=== PATIENT | male | born 1955 | race African-American/Black ===

== ENCOUNTER 2017-01-20 22:14 | Inpatient (IN) | payer OTHER ==
[2017-01-20] MEDS ORDERED: NALOXONE HCL 0.4 MG/ML VIAL IVPUSH ONE (23:34)
[2017-01-20] MEDS ORDERED: NALOXONE HCL 0.4 MG/ML VIAL ONE (23:49)
[2017-01-21] MEDS ORDERED: SODIUM CHLORIDE 1,000 ML IV STA ×3 (00:18→02:24)
[2017-01-21 00:44] LABS: URINE APPEARANCE CLOUDY; URINE BILIRUBIN NEGATIVE (NEGATIVE); URINE BLOOD NEGATIVE (NEGATIVE); URINE COLOR YELLOW; URINE GLUCOSE (UA) 3+ (NEGATIVE); URINE KETONE NEGATIVE (NEGATIVE); URINE LEUK ESTERASE NEGATIVE (NEGATIVE); URINE NITRITE NEGATIVE (NEGATIVE); URINE PROTEIN NEGATIVE (NEGATIVE); URINE UROBILINOGEN NEGATIVE mg/dL (0.2-1.0)
[2017-01-21 01:08] LABS: INR 0.98 (0.82-1.09); PROTHROMBIN TIME (PATIENT) 10.8 SEC (9.98-11.88)
[2017-01-21 01:20] LABS: ALBUMIN 4.3 g/dl (3.4-5.0); ANION GAP 15 (8-16); BILIRUBIN,TOTAL 1.1 mg/dL (0.2-1.0); CALCIUM 10.7 mg/dL (8.5-10.1); CO2 27 mmol/L (21-32); CREATININE 3.6 mg/dL (0.7-1.3); SGOT/AST 19 U/L (15-37); SGPT/ALT 35 U/L (12-78); TOT PROT 8.8 g/dl (6.4-8.2)
[2017-01-21 01:22] LABS: ALK PHOS 150 U/L (45-117); CPK 653 IU/L (39-308); TROPONIN I 0.02 ng/ml (0.00-0.05)
[2017-01-21 01:25] LABS: GLUCOSE,RANDOM 1056 mg/dL (74-106)
[2017-01-21 01:48] LABS: BASOPHIL 0.3 % (0-2.0); EOSINOPHIL 0.1 % (0-4.5); MCH 28.1 pg (25.7-33.7); MCHC 30.6 g/dl (32.0-35.9); MEAN CELL VOLUME 91.9 fl (80-96); NEUTROPHILS 81.4 % (42.8-82.8); RDW 15.6 % (11.9-15.9); WHITE BLOOD COUNT 13.1 K/mm3 (4.0-10.0)
[2017-01-21 01:52] LABS: MEAN PLT VOLUME 11.3 fl (7.5-11.1); PLATELET COMMENT2 NO CLUMPING NOTED; PLATELET COUNT 145 K/MM3 (134-434); PLATELET ESTIMATE ADEQUATE (NORMAL)
[2017-01-21] MEDS ORDERED: INSULIN REGULAR HUMAN 100 UNITS/ML *VIAL IVPUSH ONE (02:23)
[2017-01-21] MEDS ORDERED: DEXTROSE 50%-WATER - 25 GM/50 ML VIAL IVPUSH ONE (02:23)
--- NOTE | 2017-01-21 02:23 | PDOC ---
History of Present Illness - General Chief Complaint: Altered Mental Status Stated Complaint: ALT MENTAL STATUS Time Seen by Provider: 01/20/17 22:31 Past History - Past Medical History Allergies/Adverse Reactions: Allergies Allergy/AdvReac Type Severity Reaction Status Date / Time No Allergy Information Allergy Verified 01/20/17 22:30 Available Home Medications: Ambulatory Orders Blood Sugar Diagnostic [Test Strips] 1 each ACHS #100 strip 01/24/17 Insulin (Levemir) [Levemir Vial] 30 units SQ HS #10 ml 01/24/17 Insulin (Novolog) [Novolog -] 4 units SQ TIDAC #10 ml 01/24/17 Insulin Sliding Scale [Novolog Vial Sliding Scale -] 1 vial SQ ACHS #10 ml 01/24 Lancets 1 each QID #120 each 01/24/17 Miscellaneous Medical Supply [Glucometer Device] 1 each .ROUTE ASDIR #1 kit 02/01 [place], Safety [Needle] 1 each ASDIR #120 dis.needle 01/24/17 Nystatin Oral Suspension - [Nystatin Oral Susp 449366 Units/5 ML -] 500,000 units PO Q6HPO #100 ml 01/24/17 Syringe, Disposable, 1 ml [Carepoint Luer Slip Syringe] 1 each ASDIR #120 disp.syrin 01/24/17 - Psycho/Social/Smoking Cessation Hx Suicidal Ideation: No Smoking History: Unknown if ever smoked Have you smoked in the past 12 months: No Information on smoking cessation initiated: No Hx Alcohol Use: No Drug/Substance Use Hx: No Review of Systems - Review of Systems Able to Perform ROS?: No Is the patient limited Slovenian proficient: No *Physical Exam - Vital Signs Last Vital Signs Temp Pulse Resp BP Pulse Ox 97.8 F 93 H 20 134/94 91 L 01/20/17 22:30 01/21/17 01:35 01/21/17 01:35 01/21/17 01:35 01/21/17 01:35 - Physical Exam General Appearance: Yes: Disheveled HEENT: positive: Other (PINPOINT PUPILS) Neck: positive: Supple Respiratory/Chest: positive: Lungs Clear Cardiovascular: positive: Regular Rhythm, Regular Rate Gastrointestinal/Abdominal: positive: Soft Musculoskeletal: positive: Normal Inspection Extremity: positive: Normal Capillary Refill, Normal Inspection Integumentary: positive: Normal Color, Warm Neurologic: positive: Confused (MOVING ALL EXTREMITIES) ED Treatment Course - LABORATORY CBC & Chemistry Diagram: 01/23/17 07:35 01/24/17 09:35 - ADDITIONAL ORDERS Additional order review: Laboratory Results 01/21/17 01/21/17 01/21/17 00:27 00:19 00:19 INR Sodium 135 L Potassium 6.2 H* Chloride 93 L Carbon Dioxide 27 Anion Gap 15 BUN 71 H Creatinine 3.6 H Creat Clearance w eGFR 17.27 Random Glucose 1056 H* Calcium 10.7 H Total Bilirubin 1.1 H AST 19 ALT 35 Alkaline Phosphatase 150 H Creatine Kinase 653 H Creatine Kinase Index 0.2 CK-MB (CK-2) 1.313 Troponin I 0.02 Total Protein 8.8 H Albumin 4.3 Urine Color Yellow Urine Appearance Cloudy Urine pH 5.0 Urine Protein Negative Urine Glucose (UA) 3+ H Urine Ketones Negative Urine Blood Negative Urine Nitrite Negative Urine Bilirubin Negative Urine Urobilinogen Negative Ur Leukocyte Esterase Negative Blood Type B POSITIVE Antibody Screen Negative 01/21/17 00:19 INR 0.98 Sodium Potassium Chloride Carbon Dioxide Anion Gap BUN Creatinine Creat Clearance w eGFR Random Glucose Calcium Total Bilirubin AST ALT Alkaline Phosphatase Creatine Kinase Creatine Kinase Index CK-MB (CK-2) Troponin I Total Protein Albumin Urine Color Urine Appearance Urine pH Urine Protein Urine Glucose (UA) Urine Ketones Urine Blood Urine Nitrite Urine Bilirubin Urine Urobilinogen Ur Leukocyte Esterase Blood Type Antibody Screen 01/21/17 00:19 RBC 6.11 H MCV 91.9 MCHC 30.6 L RDW 15.6 MPV 11.3 H Neutrophils % 81.4 Lymphocytes % 9.7 Monocytes % 8.5 Eosinophils % 0.1 Basophils % 0.3 - RADIOLOGY Radiology Studies Ordered: Category Date Time Status HEAD CT WITHOUT CONTRAST [CT] Stat CT Scan 01/21/17 00:06 Ordered CHEST X-RAY PORTABLE* [RAD] Stat Radiology 01/20/17 22:58 Taken - Medications Given in the ED: ED Medications Discontinued Medications Generic Name Dose Route Start Last Admin Trade Name Freq PRN Reason Stop Dose Admin Sodium Chloride 1,000 mls @ 1,000 mls/hr 01/21/17 00:18 01/21/17 01:34 Normal Saline - IV 01/21/17 01:17 1,000 mls/hr ASDIR STA Administration Naloxone HCl 0.4 mg 01/20/17 23:34 01/21/17 00:42 Narcan - IVPUSH 01/20/17 23:35 0.4 mg ONCE ONE Administration Medical Decision Making - Medical Decision Making 01/21/17 02:27 61-year-old male brought in by ambulance from home for altered mental status. Report from the paramedics is that the family at home and reported that the patient was confused and had fallen yesterday. It does not appear to be any head trauma on the patient. I have no past medical history and with this patient's medical record number was not able to obtain more information. Pt found to be hyper 11 glycemic with a glucose of 1000, acute renal failure with a creatinine of more than 3 and BUN about 70, anion gap is 15, patient has no anemia. Vital signs upon arrival were stable. He is normotensive and had no fever I did not use Tylenol and -he did not react to Narcan and remained confused pending ct scan head,ABG,IV fluids. Ordered dextrose,insulin and kayexalate for k=6.2 spoke with Connie MCFARLANE but w/u is not finished -SIGNED OUT to Dr Aguirre 01/25/17 16:57 *DC/Admit/Observation/Transfer Diagnosis at time of Disposition: Hyperosmolar (nonketotic) coma - Discharge Dispostion Condition at time of disposition: Improved - Prescriptions
[2017-01-21] MEDS ORDERED: SODIUM POLYSTYRENE SULFONATE 15 GM/60 ML BOTTLE PO ONE (02:24)
[2017-01-21] MEDS ORDERED: SODIUM POLYSTYRENE SULFONATE 15 GM/60 ML BOTTLE ONE (02:57)
[2017-01-21] MEDS ORDERED: DEXTROSE 50%-WATER 50 ML DISP.SYRIN ONE ×2 (03:04→03:07)
--- NOTE | 2017-01-21 03:30 | PDOC ---
*Physical Exam - Vital Signs Last Vital Signs Temp Pulse Resp BP Pulse Ox 97.8 F 93 H 20 134/94 91 L 01/20/17 22:30 01/21/17 01:35 01/21/17 01:35 01/21/17 01:35 01/21/17 01:35 ED Treatment Course - LABORATORY CBC & Chemistry Diagram: 01/21/17 00:19 01/21/17 00:19 - ADDITIONAL ORDERS Additional order review: Laboratory Results 01/21/17 01/21/17 01/21/17 00:27 00:19 00:19 INR Sodium 135 L Potassium 6.2 H* Chloride 93 L Carbon Dioxide 27 Anion Gap 15 BUN 71 H Creatinine 3.6 H Creat Clearance w eGFR 17.27 Random Glucose 1056 H* Calcium 10.7 H Total Bilirubin 1.1 H AST 19 ALT 35 Alkaline Phosphatase 150 H Creatine Kinase 653 H Creatine Kinase Index 0.2 CK-MB (CK-2) 1.313 Troponin I 0.02 Total Protein 8.8 H Albumin 4.3 Urine Color Yellow Urine Appearance Cloudy Urine pH 5.0 Urine Protein Negative Urine Glucose (UA) 3+ H Urine Ketones Negative Urine Blood Negative Urine Nitrite Negative Urine Bilirubin Negative Urine Urobilinogen Negative Ur Leukocyte Esterase Negative Blood Type B POSITIVE Antibody Screen Negative 01/21/17 00:19 INR 0.98 Sodium Potassium Chloride Carbon Dioxide Anion Gap BUN Creatinine Creat Clearance w eGFR Random Glucose Calcium Total Bilirubin AST ALT Alkaline Phosphatase Creatine Kinase Creatine Kinase Index CK-MB (CK-2) Troponin I Total Protein Albumin Urine Color Urine Appearance Urine pH Urine Protein Urine Glucose (UA) Urine Ketones Urine Blood Urine Nitrite Urine Bilirubin Urine Urobilinogen Ur Leukocyte Esterase Blood Type Antibody Screen 01/21/17 00:19 RBC 6.11 H MCV 91.9 MCHC 30.6 L RDW 15.6 MPV 11.3 H Neutrophils % 81.4 Lymphocytes % 9.7 Monocytes % 8.5 Eosinophils % 0.1 Basophils % 0.3 - Medications Given in the ED: ED Medications Discontinued Medications Generic Name Dose Route Start Last Admin Trade Name Freq PRN Reason Stop Dose Admin Dextrose 50 gm 01/21/17 02:23 01/21/17 03:12 D50w (Vial) - IVPUSH 01/21/17 02:24 50 gm NOW ONE Administration Sodium Chloride 1,000 mls @ 1,000 mls/hr 01/21/17 00:18 01/21/17 01:34 Normal Saline - IV 01/21/17 01:17 1,000 mls/hr ASDIR STA Administration Sodium Chloride 1,000 mls @ 1,000 mls/hr 01/21/17 01:28 01/21/17 01:34 Normal Saline - IV 01/21/17 02:27 1,000 mls/hr ASDIR STA Administration Sodium Chloride 1,000 mls @ 1,000 mls/hr 01/21/17 02:24 01/21/17 03:12 Normal Saline - IV 01/21/17 03:23 1,000 mls/hr ASDIR STA Administration Insulin Human Regular 10 units 01/21/17 02:23 01/21/17 03:12 Novolin R Vial *For Ivpush Or Iv Drip Only* IVPUSH 01/21/17 02:24 10 units ONCE ONE Administration Naloxone HCl 0.4 mg 01/20/17 23:34 01/21/17 00:42 Narcan - IVPUSH 01/20/17 23:35 0.4 mg ONCE ONE Administration Sodium Polystyrene Sulfonate 30 gm 01/21/17 02:24 01/21/17 03:12 Kayexalate - PO 01/21/17 02:25 30 gm ONCE ONE Administration *DC/Admit/Observation/Transfer Diagnosis at time of Disposition: Diabetes mellitus with hyperosmolar coma - Discharge Dispostion Condition at time of disposition: Stable Admit: Yes
--- NOTE | 2017-01-21 03:38 | PN ---
Teaching Attending Note Name of Resident: Jared Robles ATTENDING PHYSICIAN STATEMENT I saw and evaluated the patient. I reviewed the resident's note and discussed the case with the resident. I agree with the resident's findings and plan as documented. SUBJECTIVE: 61 M with hx of HTN was BIBA for AMS. Pt. States he started to breath "funny," today, but offered no other history. OBJECTIVE: Physical: VS: Vital Signs Period Temp Pulse Resp BP Sys/[place] Pulse Ox Last 24 Hr 97.8 F 91-93 14-20 129-134/86-94 91-95 GEN: NAD, Resting in bed, AA0 X2 (time, unaware) HEENT: NCAT, PERRL, mouth with poor dentition CARD: RRR S1, S2 RESP: CTAB ABD: Obese, Soft, BSx4 EXT: - C/C/E CBCD WBC 13.1 K/mm3 (4.0-10.0) H 01/21/17 00:19 RBC 6.11 M/mm3 (4.00-5.60) H 01/21/17 00:19 Hgb 17.2 GM/dL (11.7-16.9) H 01/21/17 00:19 Hct 56.1 % (35.4-49) H 01/21/17 00:19 MCV 91.9 fl (80-96) 01/21/17 00:19 MCHC 30.6 g/dl (32.0-35.9) L 01/21/17 00:19 RDW 15.6 % (11.9-15.9) 01/21/17 00:19 Plt Count 145 K/MM3 (134-434) 01/21/17 00:19 MPV 11.3 fl (7.5-11.1) H 01/21/17 00:19 CMP Sodium 135 mmol/L (136-145) L 01/21/17 00:19 Potassium 6.2 mmol/L (3.5-5.1) H* 01/21/17 00:19 Chloride 93 mmol/L (98-107) L 01/21/17 00:19 Carbon Dioxide 27 mmol/L (21-32) 01/21/17 00:19 Anion Gap 15 (8-16) 01/21/17 00:19 BUN 71 mg/dL (7-18) H 01/21/17 00:19 Creatinine 3.6 mg/dL (0.7-1.3) H 01/21/17 00:19 Creat Clearance w eGFR 17.27 (>60) 01/21/17 00:19 Random Glucose 1056 mg/dL (74-106) H* 01/21/17 00:19 Calcium 10.7 mg/dL (8.5-10.1) H 01/21/17 00:19 Total Bilirubin 1.1 mg/dL (0.2-1.0) H 01/21/17 00:19 AST 19 U/L (15-37) 01/21/17 00:19 ALT 35 U/L (12-78) 01/21/17 00:19 Alkaline Phosphatase 150 U/L (45-117) H 01/21/17 00:19 Total Protein 8.8 g/dl (6.4-8.2) H 01/21/17 00:19 Albumin 4.3 g/dl (3.4-5.0) 01/21/17 00:19 CARDIAC ENZYMES Creatine Kinase 653 IU/L (39-308) H 01/21/17 00:19 Troponin I 0.02 ng/ml (0.00-0.05) 01/21/17 00:19 CT HEAD-No acute process CXR- Pending EKG: NSR Qtc 486 ASSESSMENT AND PLAN: 61 yo M with Htn who pw AMS found to be in hyperosmolar hyperglycemic State 1.) Hyperosmolar hyperglycemic State - Insulin gtt - 1/2 NS @ 200/hr - When Serum glucose decreases to 300 changes to D5 1/2 NS - K 6.2 (recieved insulin regular/D50 in Ed?), repeat STAT CMP - If K<3.3 hold insulin - 3.3-5.3 give 20 MeQ with IVF - >5.3 do not give K - Chk. S Osm - Chk. HgBA1c 2.) HTN - Unknon meds - Controlled 3.) NETO - Most likely from dehydration - IVF - U. Lytes 4.) Acute Hypoxic Respiratory Failure - ABG - 02 2L NC 5.) Dvt PPX - Heparin [address] in ICU CC Time 38 minutes
[2017-01-21] MEDS ORDERED: INSULIN REGULAR 100 UNITS in SODIUM CHLORIDE 99 ML IVPB SCH (03:45)
[2017-01-21] MEDS ORDERED: SODIUM CHLORIDE 0.45% 1,000 ML IV SCH ×2 (03:45→03:47)
[2017-01-21 04:26] LABS: ALLENS TEST POSITIVE; ART PUNCT SITE RIGHT BRACHIAL; ARTERIAL BLD GAS O2 SATURATION 88.2 % (90-98.9); ARTERIAL BLOOD GAS BASE EXCESS -2.4 meq/l (-2-2); ARTERIAL BLOOD GAS HCO3 23.4 meq/L (22-26); ARTERIAL BLOOD GAS PO2 64.3 mmHg (80-100); PT. ON O2? NO; TYPE OF O2 ROOM AIR
[2017-01-21 04:27] LABS: ARTERIAL BLOOD GAS pH 7.33 (7.35-7.45)
--- NOTE | 2017-01-21 04:47 | HP ---
CHIEF COMPLAINT: S/p fall HISTORY OF PRESENT ILLNESS: Pt is a 61yo M with unknown PMHx who was brought by EMS after fall. Patient is a poor historian, is confused about his story. States that he felt SOB, subsequently fell, did not hit his head. He is unsure about the circumstances surrounding his fall, unsure about symptoms prior to fall. He states he is no longer SOB, no CP, no abd pain, no nausea, no vomiting, no headache. ER course was notable for: (1) IVNS Boluses x3 (2) Labs - Glucose 1,056 (3) Insulin + Dextrose (4) Kayexalate x1 (5) Narcan - pt's pupils were pinpoint, Narcan given without effect Recent Travel: Denies PAST MEDICAL HISTORY: Denies PAST SURGICAL HISTORY: Denies Social History: Pt states he lives at home with his sons Smoking: Current daily smoker Alcohol: Denies Drugs: Denies Family History: Noncontributory Allergies No Allergy Information Available Allergy (Verified 01/20/17 22:30) HOME MEDICATIONS: Home Medications Medication Instructions Recorded Unobtainable [Unobtainable] 01/20/17 REVIEW OF SYSTEMS CONSTITUTIONAL: Absent: fever, chills, diaphoresis, generalized weakness, malaise, loss of appetite, weight change HEENT: Absent: rhinorrhea, nasal congestion, throat pain, throat swelling, difficulty swallowing, mouth swelling, ear pain, eye pain, visual changes CARDIOVASCULAR: Absent: chest pain, syncope, palpitations, irregular heart rate, lightheadedness , peripheral edema RESPIRATORY: Absent: cough, shortness of breath, dyspnea with exertion, orthopnea, wheezing, stridor, hemoptysis GASTROINTESTINAL: Absent: abdominal pain, abdominal distension, nausea, vomiting, diarrhea, constipation, melena, hematochezia GENITOURINARY: Absent: dysuria, frequency, urgency, hesitancy, hematuria, flank pain, genital pain MUSCULOSKELETAL: Absent: myalgia, arthralgia, joint swelling, back pain, neck pain SKIN: Absent: rash, itching, pallor HEMATOLOGIC/IMMUNOLOGIC: Absent: easy bleeding, easy bruising, lymphadenopathy, frequent infections ENDOCRINE: Absent: unexplained weight gain, unexplained weight loss, heat intolerance, cold intolerance NEUROLOGIC: Absent: headache, focal weakness or paresthesias, dizziness, unsteady gait, seizure, mental status changes, bladder or bowel incontinence PSYCHIATRIC: Absent: anxiety, depression, suicidal or homicidal ideation, hallucinations. PHYSICAL EXAMINATION Vital Signs - 24 hr 01/21/17 04:11 Pulse Rate [ 98 H Apical] Respiratory 18 Rate Blood Pressure 141/100 [Left Arm] O2 Sat by Pulse 92 L Oximetry (%) GEN: Awake, alert, responsive but confused about story. Speaks in full sentences. Understands questions. Oriented to person, month, not to place - knows he is in hospital, thought he was in [facility]. Does not recall president's name HEENT: Pupils are pinpoint, reactive, EOMi, dry mucous membranes, poor dentition CV: S1, S2, RRR LUNG: Pt was not compliant with breaths, minimal air intake ABD: Soft, NT, ND, normoactive BS MSK: No edema, no erythema, 2+ pulses NEURO: Pt was not cooperative for most of neuro exam. Laboratory Last Values WBC 13.1 K/mm3 (4.0-10.0) H 01/21/17 00:19 RBC 6.11 M/mm3 (4.00-5.60) H 01/21/17 00:19 Hgb 17.2 GM/dL (11.7-16.9) H 01/21/17 00:19 Hct 56.1 % (35.4-49) H 01/21/17 00:19 MCV 91.9 fl (80-96) 01/21/17 00:19 MCH 28.1 pg (25.7-33.7) 01/21/17 00:19 MCHC 30.6 g/dl (32.0-35.9) L 01/21/17 00:19 RDW 15.6 % (11.9-15.9) 01/21/17 00:19 Plt Count 145 K/MM3 (134-434) 01/21/17 00:19 MPV 11.3 fl (7.5-11.1) H 01/21/17 00:19 Neutrophils % 81.4 % (42.8-82.8) 01/21/17 00:19 Lymphocytes % 9.7 % (8-40) 01/21/17 00:19 Monocytes % 8.5 % (3.8-10.2) 01/21/17 00:19 Eosinophils % 0.1 % (0-4.5) 01/21/17 00:19 Basophils % 0.3 % (0-2.0) 01/21/17 00:19 Platelet Estimate Adequate (NORMAL) 01/21/17 00:19 Platelet Comment Rare giant plts 01/21/17 00:19 Platelet Comment No clumping noted 01/21/17 00:19 INR 0.98 (0.82-1.09) 01/21/17 00:19 Anticoagulation Therapy Y 01/21/17 04:00 Puncture Site Right brachial 01/21/17 04:00 ABG pH 7.33 (7.35-7.45) L 01/21/17 04:00 ABG pCO2 at Pt Temp 46.0 mmHg (35-45) H 01/21/17 04:00 ABG pO2 at Pt Temp 64.3 mmHg (80-100) L 01/21/17 04:00 ABG HCO3 23.4 meq/L (22-26) 01/21/17 04:00 ABG O2 Sat (Measured) 88.2 % (90-98.9) L 01/21/17 04:00 ABG O2 Content 19.0 % vol (15-22) 01/21/17 04:00 ABG Base Excess -2.4 meq/l (-2-2) L 01/21/17 04:00 Livan Test Positive 01/21/17 04:00 O2 Delivery Device Room air 01/21/17 04:00 Oxygen Flow Rate Y 01/21/17 04:00 Vent Mode Y 01/21/17 04:00 Vent Rate Y 01/21/17 04:00 Mechanical Rate Y 01/21/17 04:00 PEEP 0.0 cmH2O 01/21/17 04:00 Pressure Support Vent Y 01/21/17 04:00 Sodium 135 mmol/L (136-145) L 01/21/17 00:19 Potassium 6.2 mmol/L (3.5-5.1) H* 01/21/17 00:19 Chloride 93 mmol/L (98-107) L 01/21/17 00:19 Carbon Dioxide 27 mmol/L (21-32) 01/21/17 00:19 Anion Gap 15 (8-16) 01/21/17 00:19 BUN 71 mg/dL (7-18) H 01/21/17 00:19 Creatinine 3.6 mg/dL (0.7-1.3) H 01/21/17 00:19 Creat Clearance w eGFR 17.27 (>60) 01/21/17 00:19 Random Glucose 1056 mg/dL (74-106) H* 01/21/17 00:19 Calcium 10.7 mg/dL (8.5-10.1) H 01/21/17 00:19 Total Bilirubin 1.1 mg/dL (0.2-1.0) H 01/21/17 00:19 AST 19 U/L (15-37) 01/21/17 00:19 ALT 35 U/L (12-78) 01/21/17 00:19 Alkaline Phosphatase 150 U/L (45-117) H 01/21/17 00:19 Creatine Kinase 653 IU/L (39-308) H 01/21/17 00:19 Creatine Kinase Index 0.2 % (0.0-5.0) 01/21/17 00:19 CK-MB (CK-2) 1.313 ng/mL (0.5-3.6) 01/21/17 00:19 Troponin I 0.02 ng/ml (0.00-0.05) 01/21/17 00:19 Total Protein 8.8 g/dl (6.4-8.2) H 01/21/17 00:19 Albumin 4.3 g/dl (3.4-5.0) 01/21/17 00:19 Urine Color Yellow 01/21/17 00:27 Urine Appearance Cloudy 01/21/17 00:27 Urine pH 5.0 (5.0-8.0) 01/21/17 00:27 Urine Protein Negative (NEGATIVE) 01/21/17 00:27 Urine Glucose (UA) 3+ (NEGATIVE) H 01/21/17 00:27 Urine Ketones Negative (NEGATIVE) 01/21/17 00: Urine Blood Negative (NEGATIVE) 01/21/17 00: Urine Nitrite Negative (NEGATIVE) 01/21/17 00:27 Urine Bilirubin Negative (NEGATIVE) 01/21/17 00: Urine Urobilinogen Negative mg/dL (0.2-1.0) 01/21/17 00: Ur Leukocyte Esterase Negative (NEGATIVE) 01/21/17 00:27 Blood Type B POSITIVE 01/21/17 00:19 Antibody Screen Negative 01/21/17 00:[address] - No acute pathology ([facility]) CXR - No acute pathology (read by MD) ASSESSMENT/PLAN: Pt is a 61yo M with unknown PMHx who was brought by EMS after fall. Found to be in hyperglycemic hyperosmolar state (glucose 1056) w/ A1C of 11.5. # Hyperglycemic Hyperosmolar State - pH >7.3, gluc >600, No urinary ketones - Started Insulin drip - BMP stat + Q4hrs - closely monitor K+ - FSG Q1hr - IV 1/2 NS @ 150cc/hr - added KCl 20meq - S/p kayexalate given in ED, closely monitor K+ - If K < 3.3 hold insulin - If K 3.3-5.3 add 20meq KCl to fluids - Add D5 when glucose is 250-300 # Acidosis - likely mixed, ABG shows mild resp acidosis, now w/ mild AG 17 - Utox pending - O2 as needed # Hyperkalemia - likely from low insulin state - Given kayexalate in ER - Will likely resolve w/ insulin - Monitor K+ with insulin drip # Hypernatremia - Corrected Na+ is 160 - Will place on 1/2 NS IVF - Continue to monitor corrected Na+ # NETO vs CKD - unknown hx - On fluids, monitor for improvement - Urine Lytes ordered # Leukocytosis - Likely reactive, less likely infectious - Pending CXR read - Pending Lactic Acid # Elevated CK - Likely from fall - Continue hydration # QTc Prolongation - 482ms - Avoid agents that prolong QTc - Continuous cardiac monitoring # FEN - Fluids: IV 1/2 NS 150cc/hr w/ KCl 20meq - Electrolytes: Monitor K+ - Nutrition: NPO for now # Prophylaxis - DVT: Heparin SQ TID - GI: Not indicated - Deconditioning: PT on hold while patient is in ICU, order when pt is on floors # Dispo - Admit to ICU Case discussed with Dr. Lopez and Dr. Ki Robles MD - PGY1 Internal Medicine Visit type - Emergency Visit Emergency Visit: Yes ED Registration Date: 01/21/17 Care time: The patient presented to the Emergency Department on the above date and was hospitalized for further evaluation of their emergent condition. - New Patient This patient is new to me today: Yes Date on this admission: 01/21/17 - Critical Care Critical Care patient: Yes Total Critical Care Time (in minutes): 45 Critical Care Statement: The care of this patient involved high complexity decision making to prevent further life threatening deterioration of the patient 's condition and/or to evaluate & treat vital organ system(s) failure or risk of failure.
[2017-01-21] MEDS ORDERED: INSULIN REGULAR HUMAN 100 UNITS/ML *VIAL ONE (04:48)
[2017-01-21 04:56] LABS: MCH 28.1 pg (25.7-33.7); MCHC 29.9 g/dl (32.0-35.9); MEAN CELL VOLUME 94.1 fl (80-96); MEAN PLT VOLUME 11.6 fl (7.5-11.1); PLATELET COUNT 187 K/MM3 (134-434); RDW 16.1 % (11.9-15.9); WHITE BLOOD COUNT 11.7 K/mm3 (4.0-10.0)
[2017-01-21 05:14] LABS: ANION GAP 17 (8-16); CALCIUM 9.7 mg/dL (8.5-10.1); CO2 25 mmol/L (21-32); CREATININE 3.7 mg/dL (0.7-1.3)
[2017-01-21 05:16] LABS: GLUCOSE,RANDOM 1147 mg/dL (74-106)
[2017-01-21] MEDS ORDERED: SODIUM CHLORIDE 0.45% 1,000 ML with POTASSIUM CHLORIDE 20 MEQ IVPB SCH (05:30)
[2017-01-21] MEDS ORDERED: SODIUM CHLORIDE 0.45%/POT 1,000 ML IV SCH ×2 (08:00→09:02)
[2017-01-21] MEDS: HEPARIN NA (PORCINE) 5,000 UNITS/ML 1ML VIAL SQ SCH ×3 (08:51→22:05)
[2017-01-21] MEDS ORDERED: BENZOIN/ALOE VERA/STORAX/TOLU 58 ML BOTTLE ONE (08:59)
[2017-01-21] MEDS ORDERED: SODIUM CHLORIDE 0.45% 500 ML IV SCH (09:00)
[2017-01-21] MEDS ORDERED: SODIUM CHLORIDE 0.45% 500 ML IV ONE (09:00)
[2017-01-21] MEDS ORDERED: SODIUM CHLORIDE 1,000 ML IV SCH (10:15)
[2017-01-21] MEDS: MUPIROCIN 2% TOPICAL OINTMENT FOR DECOLONIZATION NS SCH ×2 (10:27→22:06)
[2017-01-21 10:33] LABS: ANION GAP 12 (8-16); CALCIUM 9.8 mg/dL (8.5-10.1); CO2 27 mmol/L (21-32); CREATININE 2.8 mg/dL (0.7-1.3); MAGNESIUM 3.6 mg/dL (1.8-2.4)
[2017-01-21 10:41] LABS: GLUCOSE,RANDOM 707 mg/dL (74-106)
[2017-01-21 11:02] VITALS: BMI 29.4
[2017-01-21] MEDS ORDERED: SODIUM CHLORIDE 0.9% 1000 ML INFUS.BAG IV ONE (12:15)
[2017-01-21 12:52] LABS: SODIUM,RANDOM URINE 18 MMOL/L
[2017-01-21 12:53] LABS: URINE CREATININE 93.1 mg/dL (20-370)
--- NOTE | 2017-01-21 13:53 | PN ---
Teaching Attending Note Name of Resident: Sariah Garcia ATTENDING PHYSICIAN STATEMENT I saw and evaluated the patient. I reviewed the resident's note and discussed the case with the resident. I agree with the resident's findings and plan as documented. SUBJECTIVE: Pt seen and examined in the ICU. Briefly, 61yo male with h/o HTN who presented with altered mental status found to have a blood glucose of 1056, started on IVF and insulin gtt, transferred to ICU for further monitoring. Pt denies prior history of DM but does not see a MD regularly. OBJECTIVE: Last Vital Signs Temp Pulse Resp BP Pulse Ox 98.8 F 79 24 128/91 97 01/21/17 12:00 01/21/17 12:00 01/21/17 12:00 01/21/17 12:00 01/21/17 11:06 Intake & Output 01/18/17 01/19/17 01/20/17 01/21/17 23:59 23:59 23:59 23:59 Output Total 100 Balance -100 Weight 200 lb 223 lb Gen: somnolent but arousable HEENT: dry mucous membranes Heart: RRR Lung: decreased breath sounds at the bases Abd: soft, nontender Ext: no edema CBC, BMP 01/21/17 04:12 01/21/17 08:55 Active Medications Chlorhexidine Gluconate (Hibiclens For Decolonization -) 1 applic TP HS ALISON Heparin Sodium (Porcine) (Heparin -) 5,000 unit SQ TID ALISON Last Admin: 01/21/17 08:51 Dose: 5,000 unit Insulin Human Regular 100 (units/ Sodium Chloride) 100 mls @ 9.07 mls/hr IVPB TITR ALISON; 0.1 UNITS/KG/HR PRN Reason: Protocol Last Admin: 01/21/17 03:45 Dose: 9.07 mls/hr Sodium Chloride (Normal Saline -) 1,000 mls @ 125 mls/hr IV ASDIR ALISON Last Admin: 01/21/17 10:25 Dose: 125 mls/hr Mupirocin (Bactroban Ointment (For Decolonization) -) 1 applic NS BID ALISON Stop: 01/26/17 09:59 Last Admin: 01/21/17 10:27 Dose: 1 applic ASSESSMENT AND PLAN: Hyperglycemic Hyperosmolar Non Ketotic State Newly diagnosed DM Acute Kidney Injury Hypovolemia HTN - last BGM 268, will stop insulin gtt and start sliding scale coverage - change IVF to 1/2NS - start levemir 20 units qHS - monitor BGM - diabetic teaching, diet modifications - monitor urine output, creatinine - f/u urine lytes - aspiration precautions - DVT prophylaxis critical care time spent in reviewing chart, evaluating patient and formulating plan 35 min
[2017-01-21 14:34] LABS: ANION GAP 10 (8-16); CALCIUM 9.6 mg/dL (8.5-10.1); CO2 30 mmol/L (21-32); CREATININE 2.3 mg/dL (0.7-1.3); GLUCOSE,RANDOM 279 mg/dL (74-106)
--- NOTE | 2017-01-21 15:01 | EKG ---
Test Reason : Blood Pressure : / mmHG Vent. Rate : 097 BPM Atrial Rate : 097 BPM P-R Int : 136 ms QRS Dur : 090 ms QT Int : 380 ms P-R-T Axes : 079 -25 055 degrees QTc Int : 482 ms NORMAL SINUS RHYTHM PROLONGED QT ABNORMAL ECG NO PREVIOUS ECGS AVAILABLE Confirmed by JORGE VELASQUEZ MD ([id number]) on 01/21/2017 3:01:35 PM Referred By: Confirmed By:JORGE VELASQUEZ MD
[2017-01-21] MEDS: SODIUM CHLORIDE 0.45% 1,000 ML IV SCH (15:17)
[2017-01-21] MEDS ORDERED: INSULIN SLIDING SCALE (NOVOLOG) 1 VIAL SQ SCH (16:30)
--- NOTE | 2017-01-21 16:30 | PN ---
Teaching Attending Note Name of Resident: Mony Urena ATTENDING PHYSICIAN STATEMENT I saw and evaluated the patient. I reviewed the resident's note and discussed the case with the resident. I agree with the resident's findings and plan as documented. SUBJECTIVE: unable to take hx as confused OBJECTIVE: NAD, lethargic but arousable, does not know year, but knows location and age Dry MM, no facial droop, round equal pupils CV: RRR Lungs : CTAb ext : no edema Neuro ; not cooperative . moves all extremities , no facial droop . EOMI ASSESSMENT AND PLAN: 61 y/o man with unknown PMH who presented after a fall and with AMS and was found to have HHS 1- HHS: no evidence of ketones in urine. AG slightly elevated with mild acidosis which resolved. very dry on PE - last sugar in 200. now off insulin gtt . - cont 1/2 NS at 100 cc - Levemir HS - SSI - dietition education when mentation improves 2- AMS , due to metabolic encephalopathy in the setting of severe dehydration and HHS - cont IVF - expect mentation to improve with improvement in NA level 3- Sever dehydration : - cont IVF NS at 100 cc . - MOnitor Na q 6 hr - goal of decrease in NA is < 0.5 meq/dl/hr 4- NETO :likely due to dehydration . Improved with IVF - cont IVF 5- Leukocytosis , liekly reactive , no evidence of infection ICU level of care Critical Care Total Critical Care Time (in minutes): 45 Critical Care Statement: The care of this patient involved high complexity decision making to prevent further life threatening deterioration of the patient 's condition and/or to evaluate & treat vital organ system(s) failure or risk of failure.
[2017-01-21] MEDS ORDERED: INSULIN (NOVOLOG) ASPART 100 UNITS/ML 10ML VIAL ONE (17:15)
--- NOTE | 2017-01-21 17:30 | CONSULT ---
Consult Consult Specialty:: ICU/Pulm - History of Present Illness History of Present Illness: 61yo man with unknown PMH who was BIBEMS after a fall and AMS. In the ED, pt was found to be in hyperglycemic hyperosmolar non-ketotic state (initial BG 1056 ). He was started on insulin gtt, received 3L NS boluses, and transferred to the ICU. HPI is limited due to patient's AMS. He endorses increased thirst. Denies history of diabetes. He does not see a physician regularly. - History Source History Provided By: Patient, Medical Record Limitations to Obtaining History: Clinical Condition - Past Medical History Additional Medical History: patient AMS and new to [facility], unable to obtain PMH - Past Surgical History Additional Surgical History: unable to obtain - Alcohol/Substance Use Hx Alcohol Use: No - Smoking History Smoking history: Current every day smoker Have you smoked in the past 12 months: No Aproximately how many cigarettes per day: 20 - Social History Usual Living Arrangement: With Child Occupation: retired, hospital building maintanence work Home Medications - Allergies Allergies/Adverse Reactions: Allergies Allergy/AdvReac Type Severity Reaction Status Date / Time No Allergy Information Allergy Verified 01/20/17 22:30 Available - Home Medications Home Medications: Ambulatory Orders Unobtainable [Unobtainable] 01/20/17 Review of Systems Unable to obtain ROS, reason: AMS Physical Exam Vital Signs: Vital Signs Temperature 97.4 F L 01/21/17 16:00 Pulse Rate 79 01/21/17 12:00 Respiratory Rate 21 01/21/17 14:00 Blood Pressure 149/78 01/21/17 16:00 O2 Sat by Pulse Oximetry (%) 97 01/21/17 11:06 Intake & Output 01/18/17 01/19/17 01/20/17 01/21/17 23:59 23:59 23:59 23:59 Intake Total 2007 Output Total 500 Balance 1508 Weight 90.718 kg 101.151 kg Constitutional: Yes: Well Nourished Eyes: Yes: Conjunctiva Clear HENT: Yes: Atraumatic, Other (poor dentition, dry mucous membranes) Cardiovascular: Yes: Regular Rate and Rhythm, Other (normal S1, S2; no murmur, gallop or rub) Respiratory: Yes: CTA Bilaterally Gastrointestinal: Yes: Soft, Abdomen, Obese, Other (Non tenderness, non distended) Edema: No Peripheral Pulses WNL: Yes Neurological: Yes: Other (lethargic, but arousable, oriented to himself (knew name, birthday), place (knew was in hospital, but could not name), but not to time (thought was 2019).) Labs: CBC, BMP 01/21/17 04:12 01/21/17 13:45 Hepatic Panel Total Bilirubin 1.1 mg/dL (0.2-1.0) H 01/21/17 00:19 AST 19 U/L (15-37) 01/21/17 00:19 ALT 35 U/L (12-78) 01/21/17 00:19 Alkaline Phosphatase 150 U/L (45-117) H 01/21/17 00:19 Albumin 4.3 g/dl (3.4-5.0) 01/21/17 00:19 INR, PTT INR 0.98 (0.82-1.09) 01/21/17 00:19 Troponin, BNP 01/21/17 00:19 Troponin I 0.02 Urine Test Results Urine Color Yellow 01/21/17 00:27 Urine Appearance Cloudy 01/21/17 00:27 Urine pH 5.0 (5.0-8.0) 01/21/17 00:27 Ur Specific [place] 1.010 (1.005-1.025) 01/21/17 00:27 Urine Protein Negative (NEGATIVE) 01/21/17 00:27 Urine Glucose (UA) 3+ (NEGATIVE) H 01/21/17 00:27 Urine Ketones Negative (NEGATIVE) 01/21/17 00:27 Urine Blood Negative (NEGATIVE) 01/21/17 00:27 Urine Nitrite Negative (NEGATIVE) 01/21/17 00:27 Urine Bilirubin Negative (NEGATIVE) 01/21/17 00:27 Ur Leukocyte Esterase Negative (NEGATIVE) 01/21/17 00:27 ABG Results ABG pH 7.33 (7.35-7.45) L 01/21/17 04:00 ABG pCO2 at Pt Temp 46.0 mmHg (35-45) H 01/21/17 04:00 ABG pO2 at Pt Temp 64.3 mmHg (80-100) L 01/21/17 04:00 ABG HCO3 23.4 meq/L (22-26) 01/21/17 04:00 ABG O2 Sat (Measured) 88.2 % (90-98.9) L 01/21/17 04:00 ABG O2 Content 19.0 % vol (15-22) 01/21/17 04:00 ABG Base Excess -2.4 meq/l (-2-2) L 01/21/17 04:00 Lactic acid 3.4, 3.1 Urine toxicology negative Imaging - Results Chest X-ray: Image Reviewed (No pneumothorax, pleural effusion, of consolidations) Cat Scan: Image Reviewed ( CT brain C-. Comparison study, CT brain January 02, 2017. The head was tilted during the acquisition of images. Serial axial images of the brain were obtained from foramen magnum to the cranial vertex without intravenous contrast. The study was supplemented with computer- generated coronal and sagittal reconstruction images. No evidence of acute subarachnoid hemorrhage, acute intra-axial or extra-axial fluid collection consistent with subdural or epidural hematoma. No mass effect, midline shift, acute territorial ischemic changes, herniation or edema is present. Normal walker matter white matter differentiation. The CSF spaces unchanged from prior CT. Age-related involutional changes are noted. No evidence of tonsillar ectopia Examination of the bone windows show no fracture. The visualized paranasal sinuses and mastoid air cells are clear. CSF filled sella turcica. Impression. No evidence of acute intracranial hemorrhage , edema, midline shift, mass effect, acute ischemic changes, skull fracture. Reported By: Bradly Lund MD 01/21/17 0736) Assessment/Plan 61yo man with unknown PMH who presents in hyperglycemic hyperosmolar non- ketotic state. He received insulin gtt and IVF with hourly BGM to trend correction with a goal of no more than 0.5mEq/dl/hr. Insulin gtt was discontinued when FBG was 268. He was started on insulin sliding scale coverage and levemir 20U HS. Hemoglobin A1c was found to be 11.5%, confirming diagnosis of diabetes. #Endocrine -BGM ACHS -Insulin sliding scale -20U Levemir HS -Diabetic teaching #Renal -Monitor I&Os -Monitor BUN/Cr -f/u urine electrolytes #Neuro -qShift neuro checks -Fall precautions -Aspiration precautions #FEN: -1/2 NS 100cc/hr -BMP q6H -Diabetic diet #PPX -Heparin 5000U SQ TID -GI ppx not indicated d/w Dr. KEYON Garcia, PGY-1 Visit type - Emergency Visit Emergency Visit: No - New Patient This patient is new to me today: Yes Date on this admission: 01/21/17 - Critical Care Critical Care patient: Yes Total Critical Care Time (in minutes): 35 Critical Care Statement: The care of this patient involved high complexity decision making to prevent further life threatening deterioration of the patient 's condition and/or to evaluate & treat vital organ system(s) failure or risk of failure.
--- NOTE | 2017-01-21 17:41 | PN ---
Physical Exam: SUBJECTIVE: Patient seen and examined. Seen this am and he c/o about thirst. OBJECTIVE: Vital Signs Period Temp Pulse Resp BP Sys/[place] Pulse Ox Last 24 Hr 79 F-98.8 F 76-98 17-24 120-149/78-100 92-98 GENERAL: The patient is drowsy, drifting in between alertness. HEAD: Normal with no signs of trauma. EYES: sclera anicteric, conjunctiva clear, pupils react to light bilaterally. No ptosis. ENT: Dry mucous membranes. NECK: Trachea midline, full range of motion, supple. LUNGS: Breath sounds equal, clear to auscultation bilaterally, no wheezes, no crackles, no accessory muscle use. HEART: Regular rate and rhythm, S1, S2 without murmur, rub or gallop. ABDOMEN: Soft, nontender, nondistended, normoactive bowel sounds, no guarding, no rebound, no hepatosplenomegaly, no masses. EXTREMITIES: 2+ pulses, warm, well-perfused, no edema. NEUROLOGICAL: Oriented to person and place. Obeys commands, Muscle strength 4/5 , reflexes normal UL and LL. Gait not observed. Laboratory Results - last 24 hr 01/21/17 01/21/17 01/21/17 04:00 04:12 04:12 WBC 11.7 H RBC 5.70 H Hgb 16.0 Hct 53.7 H MCV 94.1 MCH 28.1 MCHC 29.9 L RDW 16.1 H Plt Count 187 D MPV 11.6 H Anticoagulation Therapy Y Puncture Site Right brachial ABG pH 7.33 L ABG pCO2 at Pt Temp 46.0 H ABG pO2 at Pt Temp 64.3 L ABG HCO3 23.4 ABG O2 Sat (Measured) 88.2 L ABG O2 Content 19.0 ABG Base Excess -2.4 L Livan Test Positive O2 Delivery Device Room air Oxygen Flow Rate Y Vent Mode Y Vent Rate Y Mechanical Rate Y PEEP 0.0 Pressure Support Vent Y Sodium 143 Potassium 4.4 D Chloride 101 Carbon Dioxide 25 Anion Gap 17 H BUN 75 H Creatinine 3.7 H POC Glucometer Random Glucose 1147 H* Hemoglobin A1c % Lactic Acid Calcium 9.7 Phosphorus Magnesium Ur Random Sodium Ur Random Potassium Ur Random Chloride Urine Creatinine 01/21/17 01/21/17 01/21/17 07:25 08:55 08:55 WBC RBC Hgb Hct MCV MCH MCHC RDW Plt Count MPV Anticoagulation Therapy Puncture Site ABG pH ABG pCO2 at Pt Temp ABG pO2 at Pt Temp ABG HCO3 ABG O2 Sat (Measured) ABG O2 Content ABG Base Excess Livan Test O2 Delivery Device Oxygen Flow Rate Vent Mode Vent Rate Mechanical Rate PEEP Pressure Support Vent Sodium Potassium Chloride Carbon Dioxide Anion Gap BUN Creatinine POC Glucometer Random Glucose 822 H* D Hemoglobin A1c % Cancelled Lactic Acid Calcium Phosphorus Magnesium Cancelled Ur Random Sodium Ur Random Potassium Ur Random Chloride Urine Creatinine 01/21/17 01/21/17 01/21/17 08:55 08:55 08:55 WBC RBC Hgb Hct MCV MCH MCHC RDW Plt Count MPV Anticoagulation Therapy Puncture Site ABG pH ABG pCO2 at Pt Temp ABG pO2 at Pt Temp ABG HCO3 ABG O2 Sat (Measured) ABG O2 Content ABG Base Excess Livan Test O2 Delivery Device Oxygen Flow Rate Vent Mode Vent Rate Mechanical Rate PEEP Pressure Support Vent Sodium 152 H Potassium 4.3 Chloride 113 H D Carbon Dioxide 27 Anion Gap 12 BUN 65 H Creatinine 2.8 H D POC Glucometer Random Glucose 707 H* Hemoglobin A1c % 11.5 H Lactic Acid 3.4 H* Calcium 9.8 Phosphorus 4.0 Magnesium 3.6 H Ur Random Sodium Ur Random Potassium Ur Random Chloride Urine Creatinine 01/21/17 01/21/17 01/21/17 11:20 12:24 13:39 WBC RBC Hgb Hct MCV MCH MCHC RDW Plt Count MPV Anticoagulation Therapy Puncture Site ABG pH ABG pCO2 at Pt Temp ABG pO2 at Pt Temp ABG HCO3 ABG O2 Sat (Measured) ABG O2 Content ABG Base Excess Livan Test O2 Delivery Device Oxygen Flow Rate Vent Mode Vent Rate Mechanical Rate PEEP Pressure Support Vent Sodium Potassium Chloride Carbon Dioxide Anion Gap BUN Creatinine POC Glucometer 356.76323 268.81398 Random Glucose Hemoglobin A1c % Lactic Acid Calcium Phosphorus Magnesium Ur Random Sodium 18 Ur Random Potassium 23.4 Ur Random Chloride < 10 Urine Creatinine 93.1 01/21/17 01/21/17 01/21/17 13:45 13:45 15:08 WBC RBC Hgb Hct MCV MCH MCHC RDW Plt Count MPV Anticoagulation Therapy Puncture Site ABG pH ABG pCO2 at Pt Temp ABG pO2 at Pt Temp ABG HCO3 ABG O2 Sat (Measured) ABG O2 Content ABG Base Excess Livan Test O2 Delivery Device Oxygen Flow Rate Vent Mode Vent Rate Mechanical Rate PEEP Pressure Support Vent Sodium 160 H Potassium 4.1 Chloride 120 H Carbon Dioxide 30 Anion Gap 10 BUN 63 H Creatinine 2.3 H POC Glucometer [phone] Random Glucose 279 H D Hemoglobin A1c % Lactic Acid 3.1 H* Calcium 9.6 Phosphorus Magnesium Ur Random Sodium Ur Random Potassium Ur Random Chloride Urine Creatinine Active Medications Generic Name Dose Route Start Last Admin Trade Name Jono PRN Reason Stop Dose Admin Chlorhexidine Gluconate 1 applic 01/21/17 22:00 Hibiclens For Decolonization - TP HS ALISON Heparin Sodium (Porcine) 5,000 unit 01/21/17 06:00 01/21/17 14:03 Heparin - SQ 5,000 unit TID ALISON Administration Sodium Chloride 1,000 mls @ 100 mls/hr 01/21/17 14:45 01/21/17 15:17 1/2 Normal Saline IV 100 mls/hr ASDIR ALISON Administration Insulin Aspart 1 vial 01/21/17 16:35 Novolog Vial Sliding Scale - SQ ACHS ALISON Protocol Insulin Detemir 20 units 01/21/17 22:00 Levemir Vial SQ HS ALISON Mupirocin 1 applic 01/21/17 10:00 01/21/17 10:27 Bactroban Ointment (For Decolonization) - NS 01/26/17 09:59 1 applic BID ALISON Administration ASSESSMENT/PLAN: A 61 year old male, with unknown medical history, presented with altered mental status, and admitted for [facility]. #Hyperglycemic Hyperosmolar Stat- -Spoke to mother no prior history of DM, HTN or previous falls or syncope -Presenting glucose- above 1000 -3+ glucose in UA -absent ketones in urine -Anion gap peaked at 17 started to trend down -IVF Nsaline was given at @100mls/hr till RPG less than 300 -Now on IVF 1/2 Nsaline@100/hr to correct Na at 160 -monitoring Na Q6H -Insulin drip stopped # Acidosis - - Mild acidosis- ph 7.33 - Utox pending # Hyperkalemia - likely from low insulin state - Given kayexalate in ER - Had KCl fluid - Now stable at 4.1 following hydration, insulin drip, repletion # Hypernatremia - Presenting corrected Na+ was 160, -trended down to 140s with 1/2NS -and returned to 160 following rehydration with 0.9% - Now on IVF 1/2 Nsaline@100/hr - Continue to monitor Na+ Q6H # NETO vs CKD - unknown hx- BUN trending down-from max 74 to 63, Cr trending down - On fluids, monitor for improvement - Urine Lytes - within normal limits- # Leukocytosis - Trending downwards - CXR - no acute pathology noted - Lactic Acid -trending down # Elevated CK - Likely from fall - Continue hydration # QTc Prolongation - 482ms - Avoid agents that prolong QTc - Continuous cardiac monitoring # FEN - Fluids: IV 1/2 NS 100cc/hr - Electrolytes: Monitor Na - Nutrition: NPO for now # Prophylaxis - DVT: Heparin SQ TID - GI: Not indicated - Deconditioning: PT on hold while patient is in ICU, order when pt is on floors Visit type - Emergency Visit Emergency Visit: Yes ED Registration Date: 01/21/17 Care time: The patient presented to the Emergency Department on the above date and was hospitalized for further evaluation of their emergent condition. - New Patient This patient is new to me today: Yes Date on this admission: 01/21/17 - Critical Care Critical Care patient: Yes Total Critical Care Time (in minutes): 45 Critical Care Statement: The care of this patient involved high complexity decision making to prevent further life threatening deterioration of the patient 's condition and/or to evaluate & treat vital organ system(s) failure or risk of failure. - Discharge Referral Referred to [facility] Med P.C.: No
[2017-01-21 21:31] LABS: URINE MARIJUANA THC NEGATIVE ng/ml (CUTOFF=50)
[2017-01-21] MEDS ORDERED: INSULIN DETEMIR 100 UNITS/ML MDV SQ SCH ×2 (22:00)
[2017-01-21] MEDS ORDERED: CHLORHEXIDINE GLUCONATE 4% CLEANSER FOR DECOLONIZATION TP SCH (22:00)
[2017-01-21] MEDS: INSULIN SLIDING SCALE (NOVOLOG) 1 VIAL SQ SCH (22:06)
[2017-01-22 06:06] LABS: BASOPHIL 0.8 % (0-2.0); EOSINOPHIL 4.2 % (0-4.5); MCH 28.5 pg (25.7-33.7); MEAN CELL VOLUME 89.1 fl (80-96); NEUTROPHILS 67.5 % (42.8-82.8); PLATELET COUNT 141 K/MM3 (134-434); RDW 14.7 % (11.9-15.9); WHITE BLOOD COUNT 12.1 K/mm3 (4.0-10.0)
[2017-01-22 06:31] LABS: ANION GAP 6 (8-16); CO2 32 mmol/L (21-32); GLUCOSE,RANDOM 271 mg/dL (74-106)
[2017-01-22 06:32] LABS: CREATININE 1.7 mg/dL (0.7-1.3)
[2017-01-22] MEDS: HEPARIN NA (PORCINE) 5,000 UNITS/ML 1ML VIAL SQ SCH ×3 (06:32→22:18)
[2017-01-22] MEDS: INSULIN SLIDING SCALE (NOVOLOG) 1 VIAL SQ SCH ×4 (06:32→22:17)
[2017-01-22] MEDS: SODIUM CHLORIDE 0.45% 1,000 ML IV SCH (08:00)
[2017-01-22] MEDS ORDERED: NICOTINE 7 MG/24 HOURS TOPICAL PATCH TD SCH (10:00)
[2017-01-22] MEDS: MUPIROCIN 2% TOPICAL OINTMENT FOR DECOLONIZATION NS SCH ×2 (10:58→22:05)
[2017-01-22] MEDS ORDERED: PNEUMOCOCCAL 23 VACCINE 0.5 ML VIAL IM ONE (11:00)
[2017-01-22] MEDS ORDERED: NYSTATIN 500,000 UNITS/5 ML SUSPENSION PO SCH (12:00)
[2017-01-22] MEDS ORDERED: PT OWN MED DRAWER 7, Y5N ONE (12:46)
[2017-01-22 12:52] LABS: ANION GAP 9 (8-16); CALCIUM 8.1 mg/dL (8.5-10.1); CO2 29 mmol/L (21-32); CREATININE 1.7 mg/dL (0.7-1.3)
[2017-01-22 12:57] LABS: GLUCOSE,RANDOM 425 mg/dL (74-106)
[2017-01-22] MEDS ORDERED: MAGNESIUM CITRATE 300 ML BOTTLE PO ONE (13:00)
[2017-01-22] MEDS ORDERED: SODIUM CHLORIDE 0.45% 1,000 ML IV SCH (14:38)
--- NOTE | 2017-01-22 14:46 | PN ---
Teaching Attending Note Name of Resident: Mony Urena ATTENDING PHYSICIAN STATEMENT I saw and evaluated the patient. I reviewed the resident's note and discussed the case with the resident. I agree with the resident's findings and plan as documented. SUBJECTIVE: No fever or chills , has no apin , no SOB OBJECTIVE: NAD,AAOx3 Dry MM, no facial droop, round equal pupils CV: RRR Lungs: CTAb ext : no edema ASSESSMENT AND PLAN: 61 y/o man with unknown PMH who presented after a fall and with AMS and was found to have HHS 1- HHS: sugar is elevated again , NL AG still A1c 11.4 - increase levemir to 25 HS - cont SSI - cont IVF 2- AMS , due to metabolic encephalopathy in the setting of severe dehydration and HHS - resolved 3- Dehydration : NA improved with 1/2 NS . repeat NA this am shows rapid correction in Na level. - decreased 1/2 NS to 75 cc/hr. if cont with rapid correction , can change to NS . repeat Na 6 pm - goal of decrease in NA is < 0.5 meq/dl/hr 4- NETO :likely due to dehydration . Improved with IVF - cont IVF as above 5- Leukocytosis , likely reactive , no evidence of infection tx to med surg
--- NOTE | 2017-01-22 15:19 | PN ---
Teaching Attending Note Name of Resident: Sariah Garcia ATTENDING PHYSICIAN STATEMENT I saw and evaluated the patient. I reviewed the resident's note and discussed the case with the resident. I agree with the resident's findings and plan as documented. SUBJECTIVE: Patient seen and examined in the ICU. Blood sugars are improving. Anion gap has normalized. Denies CP or SOB. OBJECTIVE: Gen: Awake and alert HEENT: dry mucous membranes Heart: RRR Lung: decreased breath sounds at the bases Abd: soft, nontender Ext: no edema Laboratory Results - last 24 hr 01/21/17 01/21/17 01/21/17 03:52 07:09 08:55 WBC RBC Hgb Hct MCV MCH MCHC RDW Plt Count MPV Neutrophils % Lymphocytes % Monocytes % Eosinophils % Basophils % Sodium Potassium Chloride Carbon Dioxide Anion Gap BUN Creatinine POC Glucometer > 400 Random Glucose Hemoglobin A1c % Cancelled Calcium Opiates Screen Negative Methadone Screen Negative Barbiturate Screen Negative Phencyclidine Screen Negative Ur Amphetamines Screen Negative MDMA (Ecstasy) Screen Negative Benzodiazepines Screen Negative Cocaine Screen Negative U Marijuana (THC) Screen Negative 01/21/17 01/21/17 01/21/17 09:33 10:26 11:30 WBC RBC Hgb Hct MCV MCH MCHC RDW Plt Count MPV Neutrophils % Lymphocytes % Monocytes % Eosinophils % Basophils % Sodium Potassium Chloride Carbon Dioxide Anion Gap BUN Creatinine POC Glucometer > 400 > 400 > 400 Random Glucose Hemoglobin A1c % Calcium Opiates Screen Methadone Screen Barbiturate Screen Phencyclidine Screen Ur Amphetamines Screen MDMA (Ecstasy) Screen Benzodiazepines Screen Cocaine Screen U Marijuana (THC) Screen 01/21/17 01/21/17 01/21/17 13:39 15:08 16:25 WBC RBC Hgb Hct MCV MCH MCHC RDW Plt Count MPV Neutrophils % Lymphocytes % Monocytes % Eosinophils % Basophils % Sodium Potassium Chloride Carbon Dioxide Anion Gap BUN Creatinine POC Glucometer 268.19653 301.17649 341.58108 Random Glucose Hemoglobin A1c % Calcium Opiates Screen Methadone Screen Barbiturate Screen Phencyclidine Screen Ur Amphetamines Screen MDMA (Ecstasy) Screen Benzodiazepines Screen Cocaine Screen U Marijuana (THC) Screen 01/21/17 01/21/17 01/22/17 21:45 21:50 05:00 WBC RBC Hgb Hct MCV MCH MCHC RDW Plt Count MPV Neutrophils % Lymphocytes % Monocytes % Eosinophils % Basophils % Sodium 152 H 154 H Potassium 4.7 Chloride 116 H Carbon Dioxide 32 Anion Gap 6 L BUN 43 H D Creatinine 1.7 H D POC Glucometer [phone] Random Glucose 271 H Hemoglobin A1c % Calcium 8.0 L Opiates Screen Methadone Screen Barbiturate Screen Phencyclidine Screen Ur Amphetamines Screen MDMA (Ecstasy) Screen Benzodiazepines Screen Cocaine Screen U Marijuana (THC) Screen 01/22/17 01/22/17 01/22/17 05:00 06:32 11:16 WBC 12.1 H RBC 4.89 Hgb 14.0 D Hct 43.6 D MCV 89.1 MCH 28.5 MCHC 32.0 RDW 14.7 Plt Count 141 D MPV 11.0 Neutrophils % 67.5 Lymphocytes % 20.3 D Monocytes % 7.2 Eosinophils % 4.2 D Basophils % 0.8 Sodium Potassium Chloride Carbon Dioxide Anion Gap BUN Creatinine POC Glucometer [phone] > 400 Random Glucose Hemoglobin A1c % Calcium Opiates Screen Methadone Screen Barbiturate Screen Phencyclidine Screen Ur Amphetamines Screen MDMA (Ecstasy) Screen Benzodiazepines Screen Cocaine Screen U Marijuana (THC) Screen 01/22/17 01/22/17 12:00 12:00 WBC RBC Hgb Hct MCV MCH MCHC RDW Plt Count MPV Neutrophils % Lymphocytes % Monocytes % Eosinophils % Basophils % Sodium 149 H Potassium 4.3 Chloride 111 H Carbon Dioxide 29 Anion Gap 9 BUN 42 H Creatinine 1.7 H POC Glucometer Random Glucose 425 H* D Cancelled Hemoglobin A1c % Calcium 8.1 L Opiates Screen Methadone Screen Barbiturate Screen Phencyclidine Screen Ur Amphetamines Screen MDMA (Ecstasy) Screen Benzodiazepines Screen Cocaine Screen U Marijuana (THC) Screen ASSESSMENT AND PLAN: Hyperglycemic Hyperosmolar [place] Newly diagnosed DM Acute Kidney Injury Hypovolemia HTN - Gylcemic control - IVF - Diabetic teaching, diet modifications - monitor urine output, creatinine - DVT prophylaxis Dr Mccarthy Critical care time spent in reviewing chart, evaluating patient and formulating plan 35 min
[2017-01-22] MEDS: NYSTATIN 500,000 UNITS/5 ML SUSPENSION PO SCH (17:54)
--- NOTE | 2017-01-22 18:07 | PN ---
Physical Exam: SUBJECTIVE: Patient seen and examined. Much improved this am. OBJECTIVE: Vital Signs Period Temp Pulse Resp BP Sys/Garland Pulse Ox Last 24 Hr 97.4 F-97.8 F 71-88 10-24 122-154/72-109 99 GENERAL: The patient is awake, alert, and fully oriented, in no acute distress. HEAD: Normal with no signs of trauma. EYES: PERRL, extraocular movements intact, sclera anicteric, conjunctiva clear. No ptosis. ENT: Oral candidiasis, moist mucous membranes. LUNGS: Breath sounds equal, clear to auscultation bilaterally, no wheezes, no crackles, no accessory muscle use. HEART: Regular rate and rhythm, S1, S2 without murmur, rub or gallop. ABDOMEN: Soft, nontender, nondistended, normoactive bowel sounds, no guarding, no rebound, no hepatosplenomegaly, no masses. EXTREMITIES: Warm, well-perfused, no edema, bilateral hardened and darkened nails. NEUROLOGICAL: Oriented X3. Power 5/5 globally, reflexes 2+. Normal speech, gait not observed. PSYCH: Normal mood, normal affect. Laboratory Results - last 24 hr 01/21/17 01/21/17 01/21/17 03:52 07:09 09:33 WBC RBC Hgb Hct MCV MCH MCHC RDW Plt Count MPV Neutrophils % Lymphocytes % Monocytes % Eosinophils % Basophils % Sodium Potassium Chloride Carbon Dioxide Anion Gap BUN Creatinine POC Glucometer > 400 > 400 Random Glucose Calcium Opiates Screen Negative Methadone Screen Negative Barbiturate Screen Negative Phencyclidine Screen Negative Ur Amphetamines Screen Negative MDMA (Ecstasy) Screen Negative Benzodiazepines Screen Negative Cocaine Screen Negative U Marijuana (THC) Screen Negative 01/21/17 01/21/17 01/21/17 10:26 11:30 16:25 WBC RBC Hgb Hct MCV MCH MCHC RDW Plt Count MPV Neutrophils % Lymphocytes % Monocytes % Eosinophils % Basophils % Sodium Potassium Chloride Carbon Dioxide Anion Gap BUN Creatinine POC Glucometer > 400 > [phone] Random Glucose Calcium Opiates Screen Methadone Screen Barbiturate Screen Phencyclidine Screen Ur Amphetamines Screen MDMA (Ecstasy) Screen Benzodiazepines Screen Cocaine Screen U Marijuana (THC) Screen 01/21/17 01/21/17 01/22/17 21:45 21:50 05:00 WBC RBC Hgb Hct MCV MCH MCHC RDW Plt Count MPV Neutrophils % Lymphocytes % Monocytes % Eosinophils % Basophils % Sodium 152 H 154 H Potassium 4.7 Chloride 116 H Carbon Dioxide 32 Anion Gap 6 L BUN 43 H D Creatinine 1.7 H D POC Glucometer [phone] Random Glucose 271 H Calcium 8.0 L Opiates Screen Methadone Screen Barbiturate Screen Phencyclidine Screen Ur Amphetamines Screen MDMA (Ecstasy) Screen Benzodiazepines Screen Cocaine Screen U Marijuana (THC) Screen 01/22/17 01/22/17 01/22/17 05:00 06:32 11:16 WBC 12.1 H RBC 4.89 Hgb 14.0 D Hct 43.6 D MCV 89.1 MCH 28.5 MCHC 32.0 RDW 14.7 Plt Count 141 D MPV 11.0 Neutrophils % 67.5 Lymphocytes % 20.3 D Monocytes % 7.2 Eosinophils % 4.2 D Basophils % 0.8 Sodium Potassium Chloride Carbon Dioxide Anion Gap BUN Creatinine POC Glucometer [phone] > 400 Random Glucose Calcium Opiates Screen Methadone Screen Barbiturate Screen Phencyclidine Screen Ur Amphetamines Screen MDMA (Ecstasy) Screen Benzodiazepines Screen Cocaine Screen U Marijuana (THC) Screen 01/22/17 01/22/17 01/22/17 12:00 12:00 16:15 WBC RBC Hgb Hct MCV MCH MCHC RDW Plt Count MPV Neutrophils % Lymphocytes % Monocytes % Eosinophils % Basophils % Sodium 149 H Potassium 4.3 Chloride 111 H Carbon Dioxide 29 Anion Gap 9 BUN 42 H Creatinine 1.7 H POC Glucometer [phone] Random Glucose 425 H* D Cancelled Calcium 8.1 L Opiates Screen Methadone Screen Barbiturate Screen Phencyclidine Screen Ur Amphetamines Screen MDMA (Ecstasy) Screen Benzodiazepines Screen Cocaine Screen U Marijuana (THC) Screen Active Medications Generic Name Dose Route Start Last Admin Trade Name Freq PRN Reason Stop Dose Admin Chlorhexidine Gluconate 1 applic 01/22/17 22:00 Hibiclens For Decolonization - TP HS ALISON Heparin Sodium (Porcine) 5,000 unit 01/22/17 22:00 Heparin - SQ TID ALISON Sodium Chloride 1,000 mls @ 75 mls/hr 01/22/17 14:38 01/22/17 14:40 1/2 Normal Saline IV 75 mls/hr ASDIR ALISON Administration Insulin Aspart 1 vial 01/22/17 22:00 Novolog Vial Sliding Scale - SQ ACHS [facility] Protocol Insulin Detemir 25 units 01/22/17 22:00 Levemir Vial SQ HS [facility] Mupirocin 1 applic 01/22/17 22:00 Bactroban Ointment (For Decolonization) - NS 01/26/17 09:59 BID [facility] Nicotine 7 mg 01/23/17 10:00 Nicoderm Patch - TD DAILY [facility] Nystatin 500,000 units 01/22/17 18:00 01/22/17 17:54 Nystatin Oral Suspension - PO 500,000 units Q6HPO [facility] Administration ASSESSMENT/PLAN: A 61 year old male, with unknown medical history, presented with altered mental status, and admitted for [facility]. #Hyperglycemic Hyperosmolar State- -resolving- RPG -271 this am -No longer in altered mental state -on 05/19 Nsaline- 100mls intially then reduced to 75mls - Basal insulin at 20meQ given yesterday -On ISS # Hypernatremia -Came in with high corrected Na levels - unsure of baseline Na levels -On 05/19 Nsaline initially at 100mls/hr -rapidly corrected from 154 to 149 between 5.00am and noon - /2 Normal saline was slowed to 75mls -Repeat Na at 6.00pm was 145, 1/2 Nsaline was stopped and pt was put on 75mls /N Saline -Re evauate Na at 1.00am- orders in #Oral candidiasis -Nystatin oral suspension 500,000u PO Q6H swish and swallow - Manage DM #T2DM -Newly diagnosed with UsK6V-33.1 -Negative urine proteins - Basal insulin at 20meQ given yesterday -On ISS- # Acidosis - -Resolving - trended from max of 17 to 9 - Utox negative -Ethylene glycol and methanol test pending # Hyperkalemia -Resolving - Max value at 6.2 on presentation, Last value 4.3 following fluids and insulin therapy # NETO vs CKD - Probably due to dehydration - unknown hx- BUN trending down-from max 74 to 47, - Cr trending down max 3.6, now 1.7 - On fluids, improving # Leukocytosis - Trending downwards - CXR - no acute pathology noted - Lactic Acid -trending down # Elevated CK - Likely from fall - Continue hydration # QTc Prolongation - 482ms - Avoid agents that prolong QTc - Continuous cardiac monitoring # FEN - Fluids: IV NS 75cc/hr - Electrolytes: Monitor Na - Nutrition: NPO for now # Prophylaxis - DVT: Heparin SQ TID - GI: Not indicated - Deconditioning: Pt is ambulating at will #Dispo: Transferred to Med-Surg Visit type - Emergency Visit Emergency Visit: Yes ED Registration Date: 01/21/17 Care time: The patient presented to the Emergency Department on the above date and was hospitalized for further evaluation of their emergent condition. - New Patient This patient is new to me today: No - Critical Care Critical Care patient: Yes Total Critical Care Time (in minutes): 45 Critical Care Statement: The care of this patient involved high complexity decision making to prevent further life threatening deterioration of the patient 's condition and/or to evaluate & treat vital organ system(s) failure or risk of failure. - Discharge Referral Referred to [facility] Med P.C.: No
--- NOTE | 2017-01-22 19:20 | PN ---
Physical Exam: 24H Events: blood no acute events SUBJECTIVE: Patient seen and examined in ICU. Feeling much better. No nausea, vomiting, chest pain, or SOB. Tolerating diet. OBJECTIVE: Vital Signs Period Temp Pulse Resp BP Sys/Garland Pulse Ox Last 24 Hr 97.4 F-97.8 F 71-88 10-24 122-154/61-109 96-99 Intake & Output 01/19/17 01/20/17 01/21/17 01/22/17 23:59 23:59 23:59 23:59 Intake Total 20070 Output Total 500 1050 Balance 1508 650 Weight 90.718 kg 101.151 kg 113.7 kg GENERAL: The patient is awake, alert, and fully oriented, nad EYES:sclera anicteric, conjunctiva clear ENT: poor dentition, moist mucous membranes LUNGS: CTAB HEART: rrr, normal S1/S2, no murmur, rub or gallop. ABDOMEN: Soft, ntnd EXTREMITIES: no edema Laboratory Last Values WBC 12.1 K/mm3 (4.0-10.0) H 01/22/17 05:00 RBC 4.89 M/mm3 (4.00-5.60) 01/22/17 05:00 Hgb 14.0 GM/dL (11.7-16.9) D 01/22/17 05:00 Hct 43.6 % (35.4-49) D 01/22/17 05:00 MCV 89.1 fl (80-96) 01/22/17 05:00 MCH 28.5 pg (25.7-33.7) 01/22/17 05:00 MCHC 32.0 g/dl (32.0-35.9) 01/22/17 05:00 RDW 14.7 % (11.9-15.9) 01/22/17 05:00 Plt Count 141 K/MM3 (134-434) D 01/22/17 05:00 MPV 11.0 fl (7.5-11.1) 01/22/17 05:00 Neutrophils % 67.5 % (42.8-82.8) 01/22/17 05:00 Lymphocytes % 20.3 % (8-40) D 01/22/17 05:00 Monocytes % 7.2 % (3.8-10.2) 01/22/17 05:00 Eosinophils % 4.2 % (0-4.5) D 01/22/17 05:00 Basophils % 0.8 % (0-2.0) 01/22/17 05:00 Platelet Estimate Adequate (NORMAL) 01/21/17 00:19 Platelet Comment Rare giant plts 01/21/17 00:19 Platelet Comment No clumping noted 01/21/17 00:19 INR 0.98 (0.82-1.09) 01/21/17 00:19 Anticoagulation Therapy Y 01/21/17 04:00 Puncture Site Right brachial 01/21/17 04:00 ABG pH 7.33 (7.35-7.45) L 01/21/17 04:00 ABG pCO2 at Pt Temp 46.0 mmHg (35-45) H 01/21/17 04:00 ABG pO2 at Pt Temp 64.3 mmHg (80-100) L 01/21/17 04:00 ABG HCO3 23.4 meq/L (22-26) 01/21/17 04:00 ABG O2 Sat (Measured) 88.2 % (90-98.9) L 01/21/17 04:00 ABG O2 Content 19.0 % vol (15-22) 01/21/17 04:00 ABG Base Excess -2.4 meq/l (-2-2) L 01/21/17 04:00 Livan Test Positive 01/21/17 04:00 O2 Delivery Device Room air 01/21/17 04:00 Oxygen Flow Rate Y 01/21/17 04:00 Vent Mode Y 01/21/17 04:00 Vent Rate Y 01/21/17 04:00 Mechanical Rate Y 01/21/17 04:00 PEEP 0.0 cmH2O 01/21/17 04:00 Pressure Support Vent Y 01/21/17 04:00 Sodium 145 mmol/L (136-145) 01/22/17 17:00 Potassium 4.3 mmol/L (3.5-5.1) 01/22/17 12:00 Chloride 111 mmol/L (98-107) H 01/22/17 12:00 Carbon Dioxide 29 mmol/L (21-32) 01/22/17 12:00 Anion Gap 9 (8-16) 01/22/17 12:00 BUN 42 mg/dL (7-18) H 01/22/17 12:00 Creatinine 1.7 mg/dL (0.7-1.3) H 01/22/17 12:00 Creat Clearance w eGFR 17.27 (>60) 01/21/17 00:19 POC Glucometer 271.67393 UNITS (()) 01/22/17 16:15 Random Glucose 425 mg/dL (74-106) H* D 01/22/17 12:00 Hemoglobin A1c % 11.5 % (4.8-6.0) H 01/21/17 08:55 Lactic Acid 3.1 mmol/L (0.4-2.0) H* 01/21/17 13:45 Calcium 8.1 mg/dL (8.5-10.1) L 01/22/17 12:00 Phosphorus 4.0 mg/dL (2.5-4.9) 01/21/17 08:55 Magnesium 3.6 mg/dL (1.8-2.4) H 01/21/17 08:55 Total Bilirubin 1.1 mg/dL (0.2-1.0) H 01/21/17 00:19 AST 19 U/L (15-37) 01/21/17 00:19 ALT 35 U/L (12-78) 01/21/17 00:19 Alkaline Phosphatase 150 U/L (45-117) H 01/21/17 00:19 Creatine Kinase 653 IU/L (39-308) H 01/21/17 00:19 Creatine Kinase Index 0.2 % (0.0-5.0) 01/21/17 00:19 CK-MB (CK-2) 1.313 ng/mL (0.5-3.6) 01/21/17 00:19 Troponin I 0.02 ng/ml (0.00-0.05) 01/21/17 00:19 Total Protein 8.8 g/dl (6.4-8.2) H 01/21/17 00:19 Albumin 4.3 g/dl (3.4-5.0) 01/21/17 00:19 Urine Color Yellow 01/21/17 00:27 Urine Appearance Cloudy 01/21/17 00:27 Urine pH 5.0 (5.0-8.0) 01/21/17 00:27 Ur Specific [place] 1.010 (1.005-1.025) 01/21/17 00:27 Urine Protein Negative (NEGATIVE) 01/21/17 00:27 Urine Glucose (UA) 3+ (NEGATIVE) H 01/21/17 00:27 Urine Ketones Negative (NEGATIVE) 01/21/17 00:27 Urine Blood Negative (NEGATIVE) 01/21/17 00:27 Urine Nitrite Negative (NEGATIVE) 01/21/17 00:27 Urine Bilirubin Negative (NEGATIVE) 01/21/17 00:27 Urine Urobilinogen Negative mg/dL (0.2-1.0) 01/21/17 00:27 Ur Leukocyte Esterase Negative (NEGATIVE) 01/21/17 00:27 Ur Random Sodium 18 MMOL/L 01/21/17 11:20 Ur Random Potassium 23.4 MMOL/L 01/21/17 11:20 Ur Random Chloride < 10 MMOL/L 01/21/17 11:20 Urine Creatinine 93.1 mg/dL (20-370) 01/21/17 11:20 Opiates Screen Negative ng/ml (YWKPRX=799) 01/21/17 03:52 Methadone Screen Negative ng/ml (MFODKC=943) 01/21/17 03:52 Barbiturate Screen Negative ng/ml (IHMTXU=496) 01/21/17 03:52 Phencyclidine Screen Negative ng/ml (CUTOFF=25) 01/21/17 03:52 Ur Amphetamines Screen Negative ng/ml (HJXZCG=981) 01/21/17 03:52 MDMA (Ecstasy) Screen Negative ng/ml (OJKIBD=288) 01/21/17 03:52 Benzodiazepines Screen Negative ng/ml (WWZWNJ=161) 01/21/17 03:52 Cocaine Screen Negative ng/ml (QBVCHI=992) 01/21/17 03:52 U Marijuana (THC) Screen Negative ng/ml (CUTOFF=50) 01/21/17 03:52 Blood Type B POSITIVE 01/21/17 00:19 Antibody Screen Negative 01/21/17 00:19 Active Medications Chlorhexidine Gluconate (Hibiclens For Decolonization -) 1 applic TP HS [facility] Heparin Sodium (Porcine) (Heparin -) 5,000 unit SQ TID ALISON Sodium Chloride (Normal Saline -) 1,000 mls @ 75 mls/hr IV ASDIR ALISON Insulin Aspart (Novolog Vial Sliding Scale -) 1 vial SQ [facility] PRN Reason: Protocol Insulin Detemir (Levemir Vial) 25 units SQ HS [facility] Mupirocin (Bactroban Ointment (For Decolonization) -) 1 applic NS BID [facility] Stop: 01/26/17 09:59 Nicotine (Nicoderm Patch -) 7 mg TD DAILY [facility] Nystatin (Nystatin Oral Suspension -) 500,000 units PO Q6HPO [facility] Last Admin: 01/22/17 17:54 Dose: 500,000 units ASSESSMENT/PLAN: 61yo man with unknown PMH who presents in hyperglycemic hyperosmolar non- ketotic state. His mental status has significantly improved from yesterday, and he is fully oriented today. Anion gap normalized. Blood glucose went up this afternoon so Levemir increased to 25U. #Endocrine -BGM ACHS -Insulin sliding scale -20U Levemir HS --> increased to 25U -Diabetic teaching #Renal -Monitor I&Os -Monitor BUN/Cr -f/u urine electrolytes #Neuro -qShift neuro checks -Fall precautions -Aspiration precautions #FEN: -1/2 NS 75cc/hr -BMP q6H -Diabetic diet #PPX -Heparin 5000U SQ TID -GI ppx not indicated #Dispo: transfer to med/surg d/w Dr. Fabio Garcia, PGY-1 Visit type - Emergency Visit Emergency Visit: No - New Patient This patient is new to me today: No - Critical Care Critical Care patient: Yes Total Critical Care Time (in minutes): 35 Critical Care Statement: The care of this patient involved high complexity decision making to prevent further life threatening deterioration of the patient 's condition and/or to evaluate & treat vital organ system(s) failure or risk of failure.
[2017-01-22] MEDS: SODIUM CHLORIDE 1,000 ML IV SCH (20:00)
[2017-01-22] MEDS ORDERED: INSULIN DETEMIR 100 UNITS/ML MDV SQ SCH (22:00)
[2017-01-22] MEDS: CHLORHEXIDINE GLUCONATE 4% CLEANSER FOR DECOLONIZATION TP SCH (22:05)
[2017-01-23] MEDS: NYSTATIN 500,000 UNITS/5 ML SUSPENSION PO SCH ×4 (00:10→18:19)
[2017-01-23 05:01] LABS: BASOPHIL 1.1 % (0-2.0); EOSINOPHIL 6.2 % (0-4.5); MCH 28.5 pg (25.7-33.7); MCHC 32.6 g/dl (32.0-35.9); MEAN CELL VOLUME 87.5 fl (80-96); MEAN PLT VOLUME 10.3 fl (7.5-11.1); NEUTROPHILS 44.7 % (42.8-82.8); PLATELET COUNT 122 K/MM3 (134-434); RDW 14.1 % (11.9-15.9); WHITE BLOOD COUNT 7.7 K/mm3 (4.0-10.0)
[2017-01-23 05:26] LABS: ANION GAP 8 (8-16); CALCIUM 7.9 mg/dL (8.5-10.1); CO2 28 mmol/L (21-32); CREATININE 1.2 mg/dL (0.7-1.3); GLUCOSE,RANDOM 211 mg/dL (74-106)
[2017-01-23] MEDS: HEPARIN NA (PORCINE) 5,000 UNITS/ML 1ML VIAL SQ SCH ×3 (06:16→21:53)
[2017-01-23] MEDS: INSULIN SLIDING SCALE (NOVOLOG) 1 VIAL SQ SCH ×4 (06:36→21:54)
[2017-01-23 08:24] LABS: BASOPHIL 0.5 % (0-2.0); EOSINOPHIL 6.1 % (0-4.5); MCH 27.9 pg (25.7-33.7); MCHC 31.5 g/dl (32.0-35.9); MEAN CELL VOLUME 88.6 fl (80-96); MEAN PLT VOLUME 10.4 fl (7.5-11.1); NEUTROPHILS 50.9 % (42.8-82.8); PLATELET COUNT 127 K/MM3 (134-434); RDW 14.3 % (11.9-15.9); WHITE BLOOD COUNT 7.5 K/mm3 (4.0-10.0)
[2017-01-23] MEDS: NICOTINE 7 MG/24 HOURS TOPICAL PATCH TD SCH (09:10)
[2017-01-23 09:30] LABS: ANION GAP 8 (8-16); CALCIUM 8.2 mg/dL (8.5-10.1); CO2 30 mmol/L (21-32); CREATININE 1.3 mg/dL (0.7-1.3); GLUCOSE,RANDOM 218 mg/dL (74-106)
[2017-01-23] MEDS: MUPIROCIN 2% TOPICAL OINTMENT FOR DECOLONIZATION NS SCH ×2 (10:00→21:52)
[2017-01-23] MEDS ORDERED: INSULIN (NOVOLOG) ASPART 100 UNITS/ML 10ML VIAL ONE ×2 (12:29→18:49)
[2017-01-23] MEDS ORDERED: INSULIN DETEMIR 100 UNITS/ML MDV SQ SCH (14:13)
[2017-01-23] MEDS: SODIUM CHLORIDE 1,000 ML IV SCH (16:05)
--- NOTE | 2017-01-23 19:10 | PN ---
Physical Exam: SUBJECTIVE: Patient seen and examined. Seen this am, no new complaints. OBJECTIVE: Vital Signs Period Temp Pulse Resp BP Sys/Garland Pulse Ox Last 24 Hr 98.2 F-99.4 F 70-88 18-20 112-131/60-85 95-96 GENERAL: The patient is awake, alert, and fully oriented, in no acute distress. HEAD: Normal with no signs of trauma. EYES: PERRL, extraocular movements intact, sclera anicteric, conjunctiva clear. No ptosis. ENT: Ears normal, nares patent, oropharynx clear without exudates, moist mucous membranes. NECK: Trachea midline, full range of motion, supple. LUNGS: Breath sounds equal, clear to auscultation bilaterally, no wheezes, no crackles, no accessory muscle use. HEART: Regular rate and rhythm, S1, S2 without murmur, rub or gallop. ABDOMEN: Soft, nontender, nondistended, normoactive bowel sounds, no guarding, no rebound, no hepatosplenomegaly, no masses. EXTREMITIES: 2+ pulses, warm, well-perfused, no edema. NEUROLOGICAL: Cranial nerves II through XII grossly intact. Normal speech, gait not observed. PSYCH: Normal mood, normal affect. SKIN: Warm, dry, normal turgor, no rashes or lesions noted Laboratory Results - last 24 hr Laboratory Tests 01/23/17 01/23/17 01/23/17 04:45 07:35 13:50 Sodium 150 H 147 H 144 01/22/17 01/23/17 01/23/17 22:08 04:45 04:45 WBC 7.7 D RBC 4.68 Hgb 13.4 Hct 41.0 MCV 87.5 MCH 28.5 MCHC 32.6 RDW 14.1 Plt Count 122 L MPV 10.3 Neutrophils % 44.7 D Lymphocytes % 39.9 D Monocytes % 8.1 Eosinophils % 6.2 H Basophils % 1.1 Sodium 150 H Potassium 4.2 Chloride 114 H Carbon Dioxide 28 Anion Gap 8 BUN 25 H D Creatinine 1.2 D POC Glucometer 325 Random Glucose 211 H D Calcium 7.9 L 01/23/17 01/23/17 01/23/17 06:35 07:35 07:35 WBC 7.5 RBC 5.25 Hgb 14.7 Hct 46.5 MCV 88.6 MCH 27.9 MCHC 31.5 L RDW 14.3 Plt Count 127 L MPV 10.4 Neutrophils % 50.9 Lymphocytes % 35.4 Monocytes % 7.1 Eosinophils % 6.1 H Basophils % 0.5 Sodium 147 H Potassium 4.5 Chloride 109 H Carbon Dioxide 30 Anion Gap 8 BUN 24 H Creatinine 1.3 POC Glucometer 189 Random Glucose 218 H Calcium 8.2 L 01/23/17 01/23/17 01/23/17 12:26 13:50 17:59 WBC RBC Hgb Hct MCV MCH MCHC RDW Plt Count MPV Neutrophils % Lymphocytes % Monocytes % Eosinophils % Basophils % Sodium 144 Potassium Chloride Carbon Dioxide Anion Gap BUN Creatinine POC Glucometer 290 315 Random Glucose Calcium Active Medications Generic Name Dose Route Start Last Admin Trade Name Jono PRN Reason Stop Dose Admin Chlorhexidine Gluconate 1 applic 01/22/17 22:00 01/22/17 22:05 Hibiclens For Decolonization - TP Not Given HS ALISON Heparin Sodium (Porcine) 5,000 unit 01/22/17 22:00 01/23/17 14:39 Heparin - SQ 5,000 unit TID [facility] Administration Insulin Aspart 1 vial 01/22/17 22:00 01/23/17 18:00 Novolog Vial Sliding Scale - SQ 8 unit ACHS [facility] Administration Protocol Insulin Detemir 30 units 01/23/17 14:13 Levemir Vial SQ HS [facility] Mupirocin 1 applic 01/22/17 22:00 01/23/17 10:00 Bactroban Ointment (For Decolonization) - NS 01/26/17 09:59 Not Given BID [facility]ISON Nicotine 7 mg 01/23/17 10:00 01/23/17 09:10 Nicoderm Patch - TD 7 mg DAILY [facility] Administration Nystatin 500,000 units 01/22/17 18:00 01/23/17 18:19 Nystatin Oral Suspension - PO 500,000 units Q6HPO [facility] Administration ASSESSMENT/PLAN: A 61 year old male, with unknown medical history, presented with altered mental status, and admitted for [facility]. #T2DM with hyperglycemia -Newly diagnosed with GrS3Z-96.1 -Negative urine proteins - Basal insulin increased to 30u -On ISS- -Nurse education #Hyperglycemic Hyperosmolar State- resolved # Hypernatremia -Sodium trended overnight on N saline -Now within normal limits- at 144 - Normal saline stopped #Oral candidiasis -Nystatin oral suspension 500,000u PO Q6H swish and swallow - Manage DM # Acidosis - resolved # Hyperkalemia resolved # NETO - Likely due to dehydration - Cr now 1.2 -BUN trending down still - Continue liberal oral fluids # FEN - Fluids: [place] oral fluids - Electrolytes: IV NS 75cc/hr -discontinued - Nutrition: Diabetic diet # Prophylaxis - DVT: Heparin SQ TID - GI: Not indicated - Deconditioning: Pt is ambulating at will #Dispo: Likely discharge tomorrow Visit type - Emergency Visit Emergency Visit: Yes ED Registration Date: 01/21/17 Care time: The patient presented to the Emergency Department on the above date and was hospitalized for further evaluation of their emergent condition. - New Patient This patient is new to me today: No - Critical Care Critical Care patient: No - Discharge Referral Referred to [facility] Med P.C.: No
--- NOTE | 2017-01-23 19:30 | PN ---
Teaching Attending Note Name of Resident: Mony Urena ATTENDING PHYSICIAN STATEMENT I saw and evaluated the patient. I reviewed the resident's note and discussed the case with the resident. I agree with the resident's findings and plan as documented. SUBJECTIVE: no fever or chills . no pain OBJECTIVE: NAD,AAOx3 Dry MM, no facial droop, round equal pupils CV: RRR Lungs: CTAb ext : no edema ASSESSMENT AND PLAN: 61 y/o man with unknown PMH who presented after a fall and with AMS and was found to have HHS 1- HHS: improved A1c 11.4 - increase levemir to 30 q HS - cont SSI 2- Dehydration : NA normalized. dc IVF 3- NETO :likely due to dehydration . dc IVF dispo : hopefully home tomorrow
[2017-01-23] MEDS: CHLORHEXIDINE GLUCONATE 4% CLEANSER FOR DECOLONIZATION TP SCH (21:53)
[2017-01-24] MEDS: NYSTATIN 500,000 UNITS/5 ML SUSPENSION PO SCH ×4 (00:50→17:40)
[2017-01-24] MEDS: HEPARIN NA (PORCINE) 5,000 UNITS/ML 1ML VIAL SQ SCH ×3 (06:23→21:03)
[2017-01-24] MEDS: INSULIN SLIDING SCALE (NOVOLOG) 1 VIAL SQ SCH ×4 (06:24→21:04)
[2017-01-24] MEDS: NICOTINE 7 MG/24 HOURS TOPICAL PATCH TD SCH (10:04)
[2017-01-24 10:23] LABS: ANION GAP 5 (8-16); CALCIUM 8.5 mg/dL (8.5-10.1); CO2 29 mmol/L (21-32); CREATININE 1.2 mg/dL (0.7-1.3)
[2017-01-24 10:35] LABS: GLUCOSE,RANDOM 336 mg/dL (74-106)
[2017-01-24] MEDS ORDERED: INSULIN (NOVOLOG) ASPART 100 UNITS/ML 10ML VIAL SQ SCH (11:00)
--- NOTE | 2017-01-24 12:47 | PN ---
Teaching Attending Note Name of Resident: Alan Perez ATTENDING PHYSICIAN STATEMENT I saw and evaluated the patient. I reviewed the resident's note and discussed the case with the resident. I agree with the resident's findings and plan as documented. SUBJECTIVE: no fever or chills . feels "great " OBJECTIVE: NAD,AAOx3 Dry MM, no facial droop, round equal pupils CV: RRR Lungs: CTAb ext : no edema ASSESSMENT AND PLAN: 61 y/o man with unknown PMH who presented after a fall and with AMS and was found to have HHS 1- HHS: resolved . BS is slightly high A1c 11.4 - cont levemir to 30 q HS - add 4 unit standing with meals . cont SSI 2- Dehydration : resolved 3- NETO :likely due to dehydration . dc home if afternoon sugar is stable
--- NOTE | 2017-01-24 12:56 | DS ---
Physical Exam: SUBJECTIVE: Patient seen and examined OBJECTIVE: Vital Signs Period Temp Pulse Resp BP Sys/Garland Pulse Ox Last 24 Hr 98.0 F-99 F 73-82 20-20 122-144/69-82 96-97 PHYSICAL EXAM GENERAL: The patient is awake, alert, and fully oriented, in no acute distress. HEAD: Normal with no signs of trauma. EYES: PERRL, extraocular movements intact, sclera anicteric, conjunctiva clear. ENT: Ears normal, nares patent, oropharynx clear without exudates, moist mucous membranes. NECK: Trachea midline, full range of motion, supple. LUNGS: Breath sounds equal, clear to auscultation bilaterally, no wheezes, no crackles, no accessory muscle use. HEART: Regular rate and rhythm, S1, S2 without murmur, rub or gallop. ABDOMEN: Soft, nontender, nondistended, normoactive bowel sounds, no guarding, no rebound, no hepatosplenomegaly, no masses. EXTREMITIES: 2+ pulses, warm, well-perfused, no edema. NEUROLOGICAL: Cranial nerves II through XII grossly intact. Normal speech, gait not observed. PSYCH: Normal mood, normal affect. SKIN: Warm, dry, normal turgor, no rashes or lesions noted. LABS Laboratory Results - last 24 hr 01/21/17 01/23/17 01/23/17 10:45 13:50 17:59 Sodium 144 Potassium Chloride Carbon Dioxide Anion Gap BUN Creatinine POC Glucometer 315 Random Glucose Calcium Ethylene Glycol None detected 01/23/17 01/24/17 01/24/17 21:52 06:21 09:35 Sodium 142 Potassium 4.6 Chloride 108 H Carbon Dioxide 29 Anion Gap 5 L BUN 17 D Creatinine 1.2 POC Glucometer 347 271 Random Glucose 336 H* D Calcium 8.5 Ethylene Glycol 01/24/17 11:19 Sodium Potassium Chloride Carbon Dioxide Anion Gap BUN Creatinine POC Glucometer 328 Random Glucose Calcium Ethylene Glycol HOSPITAL COURSE: Date of Admission:01/21/17 Date of Discharge: 01/24/17 Discharge Summary Reason For Visit: HYPEROSMOLAR NONKETOTIC COMA Current Active Problems Acute kidney failure (Acute) Dehydration (Acute) Diabetes mellitus (Acute) Hyperosmolar (nonketotic) coma (Acute) Condition: Improved - Instructions Diet, Activity, Other Instructions: you were treated for new onset diabetes please take your insulin as prescribed 30 units at night of lantus 4 units of novolog before each meal and then a sliding scale on top of that for fingersticks 200 or less do not give any additonal insulin 201-250 2 additional units 251-300 4 units 301-350 6 units 351-400 8 units if above 400 call your doctor becareful for low blood sugar you can get anxious have sweats or abdominal pain check your sugar immediately and drink juice or eat crackers if you do not eat then you need to check your sugar before you give yourself insulin in case your blood sugar drops too much you need to see a podiatrisy very year and an eye doctor every year make a journal of the times and dates of your blood sugars 4 times a day and give the journal to your primary care doctor i will give you a few choices to choose from for primary care doctors Referrals: Rudy Bain MD [Staff Physician] - 1 Month (podiatrisy) Johann Alston MD [Staff Physician] - 1 Week Shimon Rodriguez MD [Staff Physician] - 1 Week Nigel Martinez MD [Staff Physician] - 1 Week Disposition: VNS/HOME HEALTH CARE - Home Medications Comprehensive Discharge Medication List: Ambulatory Orders Insulin (Levemir) [Levemir Vial] 30 units SQ HS #10 ml 01/24/17 Insulin (Novolog) [Novolog -] 4 units SQ TIDAC #10 ml 01/24/17 Insulin Sliding Scale [Novolog Vial Sliding Scale -] 1 vial SQ ACHS #10 ml 01/24 Lancets 1 each QID #120 each 01/24/17 Miscellaneous Medical Supply [Glucometer Device] 1 each .ROUTE ASDIR #1 kit 02/01 [place], Safety [Needle] 1 each ASDIR #120 dis.needle 01/24/17 Nystatin Oral Suspension - [Nystatin Oral Susp 631395 Units/5 ML -] 500,000 units PO Q6HPO #100 ml 01/24/17 Syringe, Disposable, 1 ml [Carepoint Luer Slip Syringe] 1 each ASDIR #120 disp.syrin 01/24/17 - Discharge Referral Referred to [facility] No
--- NOTE | 2017-01-24 15:22 | PN ---
Physical Exam: SUBJECTIVE: Patient seen and examined. no issues OBJECTIVE: Vital Signs Period Temp Pulse Resp BP Sys/Garland Pulse Ox Last 24 Hr 98.0 F-99 F 73-82 20-20 122-144/69-82 96-97 GENERAL: The patient is awake, alert, and fully oriented, in no acute distress. LUNGS: Breath sounds equal, clear to auscultation bilaterally, no wheezes, no crackles, no accessory muscle use. HEART: Regular rate and rhythm, S1, S2 without murmur, rub or gallop. ABDOMEN: Soft, nontender, nondistended, normoactive bowel sounds, no guarding EXTREMITIES: 2+ pulses, warm, well-perfused, no edema. PSYCH: Normal mood, normal affect. SKIN: Warm, dry, normal turgor, no rashes or lesions noted Laboratory Results - last 24 hr 01/21/17 01/23/17 01/23/17 10:45 13:50 17:59 Sodium 144 Potassium Chloride Carbon Dioxide Anion Gap BUN Creatinine POC Glucometer 315 Random Glucose Calcium Ethylene Glycol None detected 01/23/17 01/24/17 01/24/17 21:52 06:21 09:35 Sodium 142 Potassium 4.6 Chloride 108 H Carbon Dioxide 29 Anion Gap 5 L BUN 17 D Creatinine 1.2 POC Glucometer 347 271 Random Glucose 336 H* D Calcium 8.5 Ethylene Glycol 01/24/17 11:19 Sodium Potassium Chloride Carbon Dioxide Anion Gap BUN Creatinine POC Glucometer 328 Random Glucose Calcium Ethylene Glycol Active Medications Generic Name Dose Route Start Last Admin Trade Name Freq PRN Reason Stop Dose Admin Heparin Sodium (Porcine) 5,000 unit 01/22/17 22:00 01/24/17 15:17 Heparin - SQ 5,000 unit TID ALISON Administration Insulin Aspart 1 vial 01/24/17 10:45 01/24/17 11:21 Novolog Vial Sliding Scale - SQ 6 units ACHS ALISON Administration Protocol Insulin Aspart 8 units 01/24/17 13:50 Novolog Vial SQ TIDAC ALISON Insulin Detemir 36 units 01/24/17 22:00 Levemir Vial SQ HS ALISON Nicotine 7 mg 01/23/17 10:00 01/24/17 10:04 Nicoderm Patch - TD 7 mg DAILY ALISON Administration Nystatin 500,000 units 01/22/17 18:00 01/24/17 12:11 Nystatin Oral Suspension - PO 500,000 units Q6HPO ALISON Administration ASSESSMENT/PLAN: A 61 year old male, with unknown medical history, presented with altered mental status, and admitted for HHS. DM2 increase levemir to 36 units HS novolog 8 units TIDAC with additional sliding scale endocrinology consult as patient can not afford meds and we need help with medication management HHS resolved Hypernatremia Resolved Oral candidiasis Nystatin oral suspension 500,000u PO Q6H swish and swallow NETO Resolved FEN Off IVF no electrolyte issues diabetic diet Prophylaxis HSQ/SCDs #Dispo: D/C when seen by endocrine and fingersticks better controlled social media content manager for outpatient medications Visit type - Emergency Visit Emergency Visit: Yes ED Registration Date: 01/21/17 Care time: The patient presented to the Emergency Department on the above date and was hospitalized for further evaluation of their emergent condition. - New Patient This patient is new to me today: Yes Date on this admission: 01/24/17 - Critical Care Critical Care patient: No - Discharge Referral Referred to [facility] Med P.C.: Yes Physician Referral: Nigel Sanchez MD ([facility])
[2017-01-24] MEDS: INSULIN (NOVOLOG) ASPART 100 UNITS/ML 10ML VIAL SQ SCH (17:35)
[2017-01-24] MEDS ORDERED: INSULIN DETEMIR 100 UNITS/ML MDV SQ ONE (18:05)
[2017-01-24] MEDS ORDERED: INSULIN (NOVOLOG) ASPART 100 UNITS/ML 10ML VIAL ONE (20:52)
[2017-01-24] MEDS ORDERED: INSULIN DETEMIR 100 UNITS/ML MDV SQ SCH (22:00)
[2017-01-25] MEDS: NYSTATIN 500,000 UNITS/5 ML SUSPENSION PO SCH ×5 (00:47→23:22)
[2017-01-25] MEDS: HEPARIN NA (PORCINE) 5,000 UNITS/ML 1ML VIAL SQ SCH ×2 (06:38→16:45)
[2017-01-25] MEDS: INSULIN (NOVOLOG) ASPART 100 UNITS/ML 10ML VIAL SQ SCH ×3 (06:39→17:17)
[2017-01-25] MEDS: INSULIN SLIDING SCALE (NOVOLOG) 1 VIAL SQ SCH ×3 (06:39→17:17)
[2017-01-25] MEDS ORDERED: INSULIN (NOVOLOG) ASPART 100 UNITS/ML 10ML VIAL ONE (06:53)
[2017-01-25] MEDS ORDERED: PT OWN MED DRAWER 7, Y5N ONE (06:54)
[2017-01-25] MEDS: NICOTINE 7 MG/24 HOURS TOPICAL PATCH TD SCH (09:30)
--- NOTE | 2017-01-25 13:33 | CONSULT ---
Consult Consult Specialty:: Endocrinology Referred by:: Dr Perez Reason for Consultation:: Hyperglycemia - History of Present Illness Chief Complaint: Hyperglycemia, AMS History of Present Illness: This is a 61yo M with no PMHx who hasn't seen any physician for many years was brought by EMS after fall at home. Patient was found to be confused a in the ED. Pt now says he had gone to the bathroom where he fell and was found by his children. Pt found to be hyperglycemic with blood sugar of >1000 with normal Bicarb and anion gap of 15. Pt was treated with IV Insulin with improvement of symptoms and blood sugar and renal function On further questioning he says he has had polyuria, polydipsia and increased thirst for a few years. His weight has also fluctuated with loss of around 10 to 20 lbs in the last one year. - History Source History Provided By: Patient, Medical Record - Past Medical History Additional Medical History: patient AMS and new to [facility], unable to obtain PMH - Past Surgical History Additional Surgical History: unable to obtain - Alcohol/Substance Use Hx Alcohol Use: No - Smoking History Smoking history: Current every day smoker Have you smoked in the past 12 months: No Aproximately how many cigarettes per day: 20 - Social History Usual Living Arrangement: With Child Occupation: retired, hospital building maintanence work Home Medications - Allergies Allergies/Adverse Reactions: Allergies Allergy/AdvReac Type Severity Reaction Status Date / Time No Allergy Information Allergy Verified 01/20/17 22:30 Available - Home Medications Home Medications: Ambulatory Orders Blood Sugar Diagnostic [Test Strips] 1 each ACHS #100 strip 01/24/17 Insulin (Levemir) [Levemir Vial] 30 units SQ HS #10 ml 01/24/17 Insulin (Novolog) [Novolog -] 4 units SQ TIDAC #10 ml 01/24/17 Insulin Sliding Scale [Novolog Vial Sliding Scale -] 1 vial SQ ACHS #10 ml 01/24 Lancets 1 each QID #120 each 01/24/17 Miscellaneous Medical Supply [Glucometer Device] 1 each .ROUTE ASDIR #1 kit 02/01 [place], Safety [Needle] 1 each ASDIR #120 dis.needle 01/24/17 Nystatin Oral Suspension - [Nystatin Oral Susp 786381 Units/5 ML -] 500,000 units PO Q6HPO #100 ml 01/24/17 Syringe, Disposable, 1 ml [Carepoint Luer Slip Syringe] 1 each ASDIR #120 disp.syrin 01/24/17 Review of Systems - Review of Systems Constitutional: reports: No Symptoms Eyes: reports: No Symptoms HENT: reports: No Symptoms Neck: reports: No Symptoms Cardiovascular: reports: No Symptoms Respiratory: reports: No Symptoms Gastrointestinal: reports: No Symptoms Genitourinary: reports: No Symptoms Breasts: reports: No Symptoms Reported Musculoskeletal: reports: No Symptoms Neurological: reports: No Symptoms Endocrine: reports: No Symptoms Hematology/Lymphatic: reports: No Symptoms Psychiatric: reports: No Symptoms Physical Exam Vital Signs: Vital Signs Temperature 98.1 F 01/25/17 08:27 Pulse Rate 72 01/25/17 11:41 Respiratory Rate 20 01/25/17 08:27 Blood Pressure 130/76 01/25/17 08:27 O2 Sat by Pulse Oximetry (%) 96 01/25/17 11:41 Constitutional: Yes: No Distress Eyes: Yes: Conjunctiva Clear HENT: Yes: Atraumatic, Normocephalic Neck: Yes: Supple, Trachea Midline Cardiovascular: Yes: Regular Rate and Rhythm Respiratory: Yes: Regular, CTA Bilaterally Gastrointestinal: Yes: Normal Bowel Sounds Renal/: Yes: WNL Breast(s): Yes: WNL Musculoskeletal: Yes: WNL Extremities: Yes: WNL Edema: No Labs: CBC, BMP 01/23/17 07:35 01/24/17 09:35 Assessment/Plan AP; HHS New Onset DM with hyperglycemia NETO AMS Monitor BGM Recommend Increase Levemir to 40 units daily at HS Novolog 10 units TID with meals Novolog SS coverage Add Glipizide 5mg BID premeals Nutrition consult Will need to get C peptide, BEVERLY Ab and Islet cell Ab before deciding on whether he can be tapered off Insulin If cost is an issue as pt doesn't have any medical insurance at this point, older Insulins NPH and Regular Insulin maybe cheaper. NPH Insulin can be used 20 units BID Regular Insulin can be used at the same dose as Novolog on discharge.
[2017-01-25] MEDS: ARTIFICIAL TEARS (POLYVINYL ALCOHOL 1.4%) OPTH DROPS OU PRN (14:29)
[2017-01-25 14:30] LABS: URINE APPEARANCE CLOUDY; URINE BILIRUBIN NEGATIVE (NEGATIVE); URINE BLOOD 3+ (NEGATIVE); URINE COLOR YELLOW; URINE GLUCOSE (UA) 3+ (NEGATIVE); URINE KETONE NEGATIVE (NEGATIVE); URINE LEUK ESTERASE TRACE (NEGATIVE); URINE NITRITE NEGATIVE (NEGATIVE); URINE UROBILINOGEN NEGATIVE mg/dL (0.2-1.0)
--- NOTE | 2017-01-25 14:33 | PN ---
Progress Note (short form) - Note Progress Note: Subjective: no fever or chills, has no abd pain , no dysuria . noticed pink urine after he was admitted to [facility] . Objective: Vital Signs: Last Vital Signs Temp Pulse Resp BP Pulse Ox 98.1 F 72 20 130/76 96 01/25/17 08:27 01/25/17 11:41 01/25/17 08:27 01/25/17 08:27 01/25/17 11:41 Laboratory Results - last 24 hr 01/24/17 01/24/17 01/25/17 17:16 20:58 06:38 POC Glucometer 270 278 214 01/25/17 10:55 POC Glucometer 279 Physical Exam: NAD,AAOx3 MMM no facial droop, round equal pupils CV: RRR Lungs: CTAb ext : no edema ASSESSMENT AND PLAN: 61 y/o man with unknown PMH who presented after a fall and with AMS and was found to have HHS 1- HHS: resolved . A1c 11.4 - increase levemir to 40 q HS - increase prandial insulin to 10 - add glipizide BID - order C -Peptide . Islet cell AB need prior auth , will obtain tomorrow - appreciate Endo Recs 2- Possible hematuria : check UA to evaluate. - If UTI will treat - if only hematuria , will hold DVT px - check H&H 3- NETO :resolved HLOC for now Visit type - Emergency Visit Emergency Visit: Yes ED Registration Date: 01/21/17 Care time: The patient presented to the Emergency Department on the above date and was hospitalized for further evaluation of their emergent condition. - New Patient This patient is new to me today: No - Critical Care Critical Care patient: No
[2017-01-25 14:35] LABS: URINE PROTEIN 1+ (NEGATIVE)
[2017-01-25 14:39] LABS: URINE MUCUS RARE; URINE RBC 120 /hpf (0-3); URINE WBC 42 /hpf (3-5)
[2017-01-25] MEDS ORDERED: cefTRIAXone SODIUM 1 GM VIAL ONE (17:10)
[2017-01-25] MEDS ORDERED: DEXTROSE 5%-WATER - 50 ML IVPB ONE (17:11)
[2017-01-25] MEDS: glipiZIDE 5 MG TABLET (FP) PO SCH (17:17)
[2017-01-25] MEDS: CEFTRIAXONE 1 GM in DEXTROSE 5%-WATER - 50 ML IVPB SCH (17:18)
[2017-01-25] MEDS: INSULIN DETEMIR 100 UNITS/ML MDV SQ SCH (21:37)
[2017-01-26] MEDS ORDERED: ACETAMINOPHEN 325 MG TABLET (FP) PO ONE (00:18)
[2017-01-26] MEDS: INSULIN (NOVOLOG) ASPART 100 UNITS/ML 10ML VIAL SQ SCH ×3 (06:26→17:27)
[2017-01-26] MEDS: NYSTATIN 500,000 UNITS/5 ML SUSPENSION PO SCH ×4 (06:26→23:37)
[2017-01-26] MEDS: glipiZIDE 5 MG TABLET (FP) PO SCH ×2 (06:26→17:27)
[2017-01-26] MEDS: INSULIN SLIDING SCALE (NOVOLOG) 1 VIAL SQ SCH ×3 (06:27→17:27)
[2017-01-26 07:52] LABS: BASOPHIL 1.4 % (0-2.0); EOSINOPHIL 6.3 % (0-4.5); MCH 27.9 pg (25.7-33.7); MCHC 32.1 g/dl (32.0-35.9); MEAN CELL VOLUME 87.1 fl (80-96); MEAN PLT VOLUME 10.1 fl (7.5-11.1); NEUTROPHILS 47.2 % (42.8-82.8); PLATELET COUNT 137 K/MM3 (134-434); RDW 14.1 % (11.9-15.9); WHITE BLOOD COUNT 5.6 K/mm3 (4.0-10.0)
[2017-01-26] MEDS: NICOTINE 7 MG/24 HOURS TOPICAL PATCH TD SCH (09:33)
[2017-01-26 16:18] LABS: METHANOL, BLOOD Negative % (0.000-0.010)
[2017-01-26] MEDS ORDERED: cefTRIAXone SODIUM 1 GM VIAL ONE (16:47)
[2017-01-26] MEDS ORDERED: DEXTROSE 5%-WATER - 50 ML IVPB ONE (16:48)
--- NOTE | 2017-01-26 16:53 | PN ---
Physical Exam: SUBJECTIVE: Patient seen and examined. No new c/o this morning. Thinks the pinkish urine is improved. OBJECTIVE: Vital Signs Period Temp Pulse Resp BP Sys/Garland Pulse Ox Last 24 Hr 98.3 F-98.9 F 72-78 18-18 128-154/64-85 96 GENERAL: The patient is awake, alert, and fully oriented, in no acute distress. EYES: Sclera anicteric, conjunctiva clear. ENT: Moist mucous membranes. LUNGS: Breath sounds equal, clear to auscultation bilaterally, no wheezes, no crackles, no accessory muscle use. HEART: Regular rate and rhythm, S1, S2 without murmur, rub or gallop. ABDOMEN: Soft, nontender, nondistended, normoactive bowel sounds, no guarding, no rebound, no hepatosplenomegaly, no masses. EXTREMITIES: 2+ pulses, warm, well-perfused, no edema. NEUROLOGICAL: Cranial nerves II through XII grossly intact. Normal speech, gait not observed. PSYCH: Normal mood, normal affect. Laboratory Results - last 24 hr 01/25/17 01/25/17 01/25/17 14:00 16:23 21:36 WBC RBC Hgb Hct MCV MCH MCHC RDW Plt Count MPV Neutrophils % Lymphocytes % Monocytes % Eosinophils % Basophils % POC Glucometer 253 175 Urine Color Yellow Urine Appearance Cloudy Urine pH 8.0 D Ur Specific Marshall 1.015 Urine Protein 1+ H Urine Glucose (UA) 3+ H Urine Ketones Negative Urine Blood 3+ H Urine Nitrite Negative Urine Bilirubin Negative Urine Urobilinogen Negative Ur Leukocyte Esterase Trace Urine RBC 120 Urine WBC 42 Ur Epithelial Cells Rare Triple Phos Crystals Rare Urine Mucus Rare 01/26/17 01/26/17 01/26/17 05:39 07:00 12:02 WBC 5.6 RBC 4.88 Hgb 13.6 Hct 42.5 MCV 87.1 MCH 27.9 MCHC 32.1 RDW 14.1 Plt Count 137 MPV 10.1 Neutrophils % 47.2 Lymphocytes % 35.5 Monocytes % 9.6 Eosinophils % 6.3 H Basophils % 1.4 POC Glucometer 202 189 Urine Color Urine Appearance Urine pH Ur Specific Marshall Urine Protein Urine Glucose (UA) Urine Ketones Urine Blood Urine Nitrite Urine Bilirubin Urine Urobilinogen Ur Leukocyte Esterase Urine RBC Urine WBC Ur Epithelial Cells Triple Phos Crystals Urine Mucus Active Medications Generic Name Dose Route Start Last Admin Trade Name Jono PRN Reason Stop Dose Admin Artificial Tears 1 drop 01/25/17 12:00 01/25/17 14:29 Artificial Tears OU 1 drop BID PRN Administration DRY EYES Glipizide 5 mg 01/25/17 16:30 01/26/17 06:26 Glucotrol - PO 5 mg BID@0700,1630 ALISON Administration Ceftriaxone Sodium 1 gm/ 50 mls @ 100 mls/hr 01/25/17 16:45 01/25/17 17:18 Dextrose IVPB 100 mls/hr Q24H ALISON Administration Insulin Aspart 10 units 01/25/17 16:30 01/26/17 12:03 Novolog Vial SQ 10 units TIDAC ALISON Administration Insulin Aspart 1 vial 01/25/17 16:30 01/26/17 12:04 Novolog Vial Sliding Scale - SQ Not Given TIDAC [facility] Protocol Insulin Detemir 40 units 01/25/17 14:26 01/25/17 21:37 Levemir Vial SQ 40 units HS ALISON Administration Nicotine 7 mg 01/23/17 10:00 01/26/17 09:33 Nicoderm Patch - TD 7 mg DAILY ALISON Administration Nystatin 500,000 units 01/22/17 18:00 01/26/17 12:04 Nystatin Oral Suspension - PO 500,000 units Q6HPO ALISON Administration ASSESSMENT/PLAN: 61 y/o man with unknown PMH who presented after a fall and with AMS and was found to have HHS #HHS: resolved . A1c 11.4 #T2DM with hyperglycemia - on levemir 40 q HS - on prandial insulin 10 - on glipizide 5mg BID -Along with sliding scale - C-Peptide -pending . Islet cell AB -pending - appreciate Endo Recs #Hematuria : -Resolved hematuria - UA -.120 RBCs, WBCs-42 - On ceftriaxone 1gm for UTI - H&H- within normal limits # NETO :resolved # Dispo: For likely discharge tomorrow working on his insulin coverage with social work pending Medicaid - Prices got from [facility] [phone] - Will be discharged on NPH 20u bid -$180 a vial for 21 days supply - Regular insulin 10 u tids - $180 per vial to last 1 month -Edwards-$25 - Glucometer-$15 -Lancets- $15 - Alcohol swabs-$10 Patient is willing and able to pay for the glucometer supplies but will need help getting the insulin. Social workers are involved. Visit type - Emergency Visit Emergency Visit: Yes ED Registration Date: 01/21/17 Care time: The patient presented to the Emergency Department on the above date and was hospitalized for further evaluation of their emergent condition. - New Patient This patient is new to me today: No - Critical Care Critical Care patient: No - Discharge Referral Referred to [facility] Med P.C.: No
--- NOTE | 2017-01-26 17:22 | PN ---
Teaching Attending Note Name of Resident: Mony Urena ATTENDING PHYSICIAN STATEMENT I saw and evaluated the patient. I reviewed the resident's note and discussed the case with the resident. I agree with the resident's findings and plan as documented. SUBJECTIVE: no fever or chills , no abd pain . OBJECTIVE: NAD,AAOx3 MMM no facial droop, round equal pupils CV: RRR Lungs: CTAb Ext : no edema Abd: soft, NT, ND , Obese, NL BS ASSESSMENT AND PLAN: 61 y/o man with unknown PMH who presented after a fall and with AMS and was found to have HHS 1- HHS: resolved. A1c 11.4 -cont levemir 40 HS ( NPH 20 BID at DC ) - cont prandial insulin 10 of novolog TID ( regular insulin at DC) - Cont glipizide BID - C -Peptide , Islet cell Abs and anti BEVERLY Abs pending 2- UTI : causing hematuria. resolved today . no leukocytosis -cont ceftriaxone day 2 3- NETO :resolved possible dc tomorrow pending urine cx for accurate Abx management in this patient who has no PMD or insurance
[2017-01-26] MEDS: CEFTRIAXONE 1 GM in DEXTROSE 5%-WATER - 50 ML IVPB SCH (17:28)
[2017-01-26] MEDS ORDERED: INSULIN (NOVOLOG) ASPART 100 UNITS/ML 10ML VIAL ONE (21:00)
[2017-01-26] MEDS: INSULIN DETEMIR 100 UNITS/ML MDV SQ SCH (21:56)
[2017-01-27] MEDS ORDERED: ACETAMINOPHEN 325 MG TABLET (FP) PO ONE (04:19)
[2017-01-27] MEDS: NYSTATIN 500,000 UNITS/5 ML SUSPENSION PO SCH ×3 (06:30→17:34)
[2017-01-27] MEDS: glipiZIDE 5 MG TABLET (FP) PO SCH ×2 (06:31→17:34)
[2017-01-27] MEDS: INSULIN (NOVOLOG) ASPART 100 UNITS/ML 10ML VIAL SQ SCH ×3 (06:31→17:36)
[2017-01-27] MEDS: INSULIN SLIDING SCALE (NOVOLOG) 1 VIAL SQ SCH ×3 (06:31→17:35)
[2017-01-27 08:04] LABS: BASOPHIL 1.1 % (0-2.0); MCH 28.2 pg (25.7-33.7); MCHC 32.3 g/dl (32.0-35.9); MEAN CELL VOLUME 87.4 fl (80-96); MEAN PLT VOLUME 9.1 fl (7.5-11.1); NEUTROPHILS 49.1 % (42.8-82.8); PLATELET COUNT 148 K/MM3 (134-434); WHITE BLOOD COUNT 5.7 K/mm3 (4.0-10.0)
[2017-01-27 08:34] LABS: ANION GAP 10 (8-16); CALCIUM 8.6 mg/dL (8.5-10.1); CO2 25 mmol/L (21-32); GLUCOSE,RANDOM 177 mg/dL (74-106)
[2017-01-27] MEDS: NICOTINE 7 MG/24 HOURS TOPICAL PATCH TD SCH (09:51)
[2017-01-27] MEDS: ARTIFICIAL TEARS (POLYVINYL ALCOHOL 1.4%) OPTH DROPS OU PRN (10:54)
--- NOTE | 2017-01-27 13:14 | PN ---
Physical Exam: SUBJECTIVE: Patient seen and examined. No complaints overnight. OBJECTIVE: Vital Signs Period Temp Pulse Resp BP Sys/Garland Pulse Ox Last 24 Hr 97.9 F-98.6 F 70-81 16-20 122-136/68-82 98-98 GENERAL: The patient is awake, alert, and fully oriented, in no acute distress. HEAD: Normal with no signs of trauma. EYES: PERRL, extraocular movements intact, sclera anicteric, conjunctiva clear. No ptosis. ENT: Ears normal, nares patent, oropharynx clear without exudates, moist mucous membranes, some missing teeth. NECK: Trachea midline, full range of motion, supple. LUNGS: Breath sounds equal, clear to auscultation bilaterally, no wheezes, no crackles, no accessory muscle use. HEART: Regular rate and rhythm, S1, S2 without murmur, rub or gallop. ABDOMEN: Soft, nontender, nondistended, normoactive bowel sounds, no guarding, no rebound, no hepatosplenomegaly, no masses. EXTREMITIES: 2+ pulses, warm, well-perfused, no edema. NEUROLOGICAL: Cranial nerves II through XII grossly intact. Normal speech, gait not observed. PSYCH: Normal mood, normal affect. SKIN: Warm, dry, normal turgor, no rashes or lesions noted Laboratory Results - last 24 hr 01/21/17 01/26/17 01/26/17 10:45 17:26 21:50 WBC RBC Hgb Hct MCV MCH MCHC RDW Plt Count MPV Neutrophils % Lymphocytes % Monocytes % Eosinophils % Basophils % Sodium Potassium Chloride Carbon Dioxide Anion Gap BUN Creatinine POC Glucometer 266 168 Random Glucose Calcium Ethylene Glycol None detected Methyl Alcohol Level Negative 01/27/17 01/27/17 01/27/17 06:30 07:20 07:20 WBC 5.7 RBC 4.65 Hgb 13.1 Hct 40.6 MCV 87.4 MCH 28.2 MCHC 32.3 RDW 14.0 Plt Count 148 MPV 9.1 Neutrophils % 49.1 Lymphocytes % 33.6 Monocytes % 11.2 H Eosinophils % 5.0 H Basophils % 1.1 Sodium 142 Potassium 4.4 Chloride 107 Carbon Dioxide 25 Anion Gap 10 BUN 12 D Creatinine 1.0 POC Glucometer 198 Random Glucose 177 H D Calcium 8.6 Ethylene Glycol Methyl Alcohol Level Active Medications Generic Name Dose Route Start Last Admin Trade Name Freq PRN Reason Stop Dose Admin Artificial Tears 1 drop 01/25/17 12:00 01/27/17 10:54 Artificial Tears OU 1 drop BID PRN Administration DRY EYES Glipizide 5 mg 01/25/17 16:30 01/27/17 06:31 Glucotrol - PO 5 mg BID@0700,1630 ALISON Administration Insulin Aspart 10 units 01/25/17 16:30 01/27/17 12:54 Novolog Vial SQ 10 units TIDAC ALISON Administration Insulin Aspart 1 vial 01/25/17 16:30 01/27/17 12:56 Novolog Vial Sliding Scale - SQ [facility] Insulin Detemir 40 units 01/25/17 14:26 01/26/17 21:56 Levemir Vial SQ 40 units HS ALISON Administration Nicotine 7 mg 01/23/17 10:00 01/27/17 09:51 Nicoderm Patch - TD 7 mg DAILY ALISON Administration Nystatin 500,000 units 01/22/17 18:00 01/27/17 12:53 Nystatin Oral Suspension - PO 500,000 units Q6HPO ALISON Administration ASSESSMENT/PLAN: 61 y/o man with unknown PMH who presented after a fall and with AMS was found to have HHS with a RPG of 1056, glucosuria of 3+ and no ketonuria. He also had initial BUN of 71 and Cr of 3.6. His HbA1C was 11.4 and he had never been diagnosed with DM prior to presentation. He presented with a K of 6.2 that normalized quickly to about 4.1, but had intractable hypernatremia for a while with the maximum value being as high as 160 at a point, but has since normalized to 142. He was treated with intravenous fluids, insulin, K replacement as needed and the next day his altered mental status had resolved. He was put on insulin sliding scale and a basal insulin of levemir was escalated for him to 40units QHS, in addition to prandial iaspart nsulin of 10units, along with a sliding scale. His latest finger stick glucose is 214 and he has received diabetes education including diet and self care. He had been a chronic smoker before his admission and had been put on nicotine patch while here. While on admission, patient noticed hematuria, that was confirmed with a UA of 120RBCs, but urine culture that was negative for growth although he received 3 days course of ceftriaxone while awaiting the result of the culture. KUB US-on showed no hydronephrosis , no shadowing renal calculi identified (CT recommended for small calculi), echogenic renal cortices reflecting medical- renal disease. Simple appearing bilateral renal cymeasuring up to 1.9 x 1.7 cm in L kidney. He will follow up with urologists on an outpatient basis for the hematuria. and with his PCP. #HHS: resolved . A1c 11.4 #T2DM with hyperglycemia - on levemir 40 q HS - on prandial insulin 10 - on glipizide 5mg BID -Along with sliding scale - C-Peptide -pending . Islet cell AB -pending #Hematuria : -Resolved hematuria - UA -.120 RBCs, WBCs-42 -Urine culture- no growth- ceftriaxone stopped - H&H- within normal limits -KUB US-on 01/27 showed no hydronephrosis , no shadowing renal calculi identified (CT recommended for small calculi), echogenic renal cortices reflecting medical-renal disease. Simple appearing bilateral renal cymeasuring up to 1.9 x 1.7 cm in L kidney. - For outpatient urology follow up # Dispo: For likely discharge working on his insulin coverage with social work pending Medicaid - Prices got from [facility] [phone] - Will be discharged on NPH 20u bid - Regular insulin 10 u tids - and glipizide 5mg BID # NETO :resolved You were treated for new onset diabetes. Please take your insulin as prescribed: NPH insulin 20u twice a day Regular insulin 10u three times a day and glipizide 5mg PO BID Watch out for low blood sugar: It could show as you getting anxious, sweating or having abdominal pain. Check your sugar immediately and drink juice or eat crackers If you skip a meal, then you need to check your sugar before you give yourself insulin, in case your blood sugar drops too low. You need to see a quality worker (foot doctor) every year and an eye doctor every year Make a journal of the times and dates of your blood sugars 4 times a day and give the journal to your primary care doctor I will give you a few choices to choose from for primary care doctors
--- NOTE | 2017-01-27 14:36 | PN ---
Teaching Attending Note Name of Resident: Mony Urena ATTENDING PHYSICIAN STATEMENT I saw and evaluated the patient. I reviewed the resident's note and discussed the case with the resident. I agree with the resident's findings and plan as documented. SUBJECTIVE: no fever or chills. has no ABd pain. hematuria returned but very mild OBJECTIVE: NAD,AAOx3 MMM no facial droop, round equal pupils CV: RRR Lungs: CTAb Ext : no edema Abd: soft, NT, ND , Obese, NL BS ASSESSMENT AND PLAN: 61 y/o man with unknown PMH who presented after a fall and with AMS and was found to have HHS 1- HHS: resolved. A1c 11.4 -cont levemir 40 HS ( NPH 20 BID at DC ) - cont prandial insulin 10 of novolog TID ( regular insulin at DC) - Cont glipizide BID - C -Peptide , Islet cell Abs and anti BEVERLY Abs pending 2- Hematuria. recurred today. urine cx neg for infection. - dc ABx - check renal US - if US Neg , will have uro f/u as out pt Dc home today . insurance became active , can afford medications
[2017-01-27] MEDS ORDERED: INSULIN (NOVOLOG) ASPART 100 UNITS/ML 10ML VIAL ONE (17:28)
--- NOTE | 2017-01-27 18:28 | DS ---
Physical Exam: SUBJECTIVE: Patient seen and examined OBJECTIVE: Vital Signs Period Temp Pulse Resp BP Sys/[place] Pulse Ox Last 24 Hr 97.8 F-98.6 F 70-81 16-20 122-136/68-82 98-98 PHYSICAL EXAM GENERAL: The patient is awake, alert, and fully oriented, in no acute distress. HEAD: Normal with no signs of trauma. EYES: PERRL, extraocular movements intact, sclera anicteric, conjunctiva clear. No ptosis. ENT: Ears normal, nares patent, oropharynx clear without exudates, moist mucous membranes, some missing teeth. NECK: Trachea midline, full range of motion, supple. LUNGS: Breath sounds equal, clear to auscultation bilaterally, no wheezes, no crackles, no accessory muscle use. HEART: Regular rate and rhythm, S1, S2 without murmur, rub or gallop. ABDOMEN: Soft, nontender, nondistended, normoactive bowel sounds, no guarding, no rebound, no hepatosplenomegaly, no masses. EXTREMITIES: 2+ pulses, warm, well-perfused, no edema. NEUROLOGICAL: Cranial nerves II through XII grossly intact. Normal speech, gait not observed. PSYCH: Normal mood, normal affect. SKIN: Warm, dry, normal turgor, no rashes or lesions noted LABS Laboratory Results - last 24 hr 01/25/17 01/26/17 01/27/17 09:00 21:50 06:30 WBC RBC Hgb Hct MCV MCH MCHC RDW Plt Count MPV Neutrophils % Lymphocytes % Monocytes % Eosinophils % Basophils % Sodium Potassium Chloride Carbon Dioxide Anion Gap BUN Creatinine POC Glucometer 168 198 Random Glucose Calcium Islet Cell Antibody Negative 01/27/17 01/27/17 01/27/17 07:20 07:20 12:52 WBC 5.7 RBC 4.65 Hgb 13.1 Hct 40.6 MCV 87.4 MCH 28.2 MCHC 32.3 RDW 14.0 Plt Count 148 MPV 9.1 Neutrophils % 49.1 Lymphocytes % 33.6 Monocytes % 11.2 H Eosinophils % 5.0 H Basophils % 1.1 Sodium 142 Potassium 4.4 Chloride 107 Carbon Dioxide 25 Anion Gap 10 BUN 12 D Creatinine 1.0 POC Glucometer 170 Random Glucose 177 H D Calcium 8.6 Islet Cell Antibody 01/27/17 17:34 WBC RBC Hgb Hct MCV MCH MCHC RDW Plt Count MPV Neutrophils % Lymphocytes % Monocytes % Eosinophils % Basophils % Sodium Potassium Chloride Carbon Dioxide Anion Gap BUN Creatinine POC Glucometer 186 Random Glucose Calcium Islet Cell Antibody HOSPITAL COURSE: 61 y/o man with unknown PMH who presented after a fall and with AMS was found to have HHS with a RPG of 1056, glucosuria of 3+ and no ketonuria. He also had initial BUN of 71 and Cr of 3.6. His HbA1C was 11.4 and he had never been diagnosed with DM prior to presentation. He presented with a K of 6.2 that normalized quickly to about 4.1, but had hypernatremia with a maximum value of 160 which has since normalized to 142. He was treated with intravenous fluids, insulin, K replacement as needed, and the next day his altered mental status had resolved. He was put on insulin sliding scale with basal insulin (levemir), escalated to 40 units QHS, prandial aspart insulin of 10units, along with a sliding scale. His latest finger stick glucose was 214 and he has received diabetes education including self injection of insulin. He was a chronic smoker before his admission and was started on nicotine patch while here. While on admission, patient noticed hematuria, that was confirmed with a UA of 120 RBCs, but urine culture was negative for bacteria. Pending culture results, he received empirical treatment with ceftriaxone which was discontinued once the culture result was available. Following up on the hematuria, KUB US-on 01/27 showed no hydronephrosis, no shadowing renal calculi identified (CT recommended for small calculi), echogenic renal cortices reflecting medical-renal disease. Simple appearing bilateral renal cyst measuring up to 1.9 x 1.7 cm in L kidney. He will follow up with his PCP and with a urologist as an outpatient for hematuria. Date of Admission:01/21/17 Date of Discharge: 01/27/17 Minutes to complete discharge: 45 Discharge Summary Reason For Visit: HYPEROSMOLAR NONKETOTIC COMA Current Active Problems Diabetes mellitus (Acute) [place]-colored urine (Acute) Condition: Improved - Instructions Diet, Activity, Other Instructions: You were treated for new onset diabetes. Please take your insulin as prescribed: NPH insulin 20u twice a day Regular insulin 10u three times a day and glipizide 5mg PO BID Watch out for low blood sugar: It could show as you getting anxious, sweating or having abdominal pain. Check your sugar immediately and drink juice or eat crackers If you skip a meal, hold your regular insulin injection ( the 10 units ) You need to see a semiconductor manufacturing technician (foot doctor, Dr. Bain ) every year and an eye doctor every year Make a journal of the times and dates of your blood sugars 4 times a day and give the journal to your primary care doctor I will give you a few choices to choose from for primary care doctors ( Dr. Martinez and Dr. Alston ) if you are sick vomiting or not eating , please consult with your doctor wheather you should adjust your insulin dose please follow with Dr. Stallings form endocrine ( for your sugar ) For the pink colored urine, you should see a urologist (urinary tract doctor)- Dr Hernandez in a week's time. The urologist will check you for the likely cause of the pink urine. Dr Hernandez's number is [phone]. Referrals: Rudy Bain MD [Staff Physician] - 1 Month (podiatrisy) Nigel Martinez MD [Staff Physician] - 1 Week Johann Alston MD [Staff Physician] - 1 Week Bruno Monae MD [Staff Physician] - 1 Week Earnest Stallings MD [Staff Physician] - Disposition: HOME - Home Medications Comprehensive Discharge Medication List: Ambulatory Orders Blood Sugar Diagnostic [Test Strips] 1 each ACHS #100 strip 01/24/17 Lancets 1 each QID #120 each 01/24/17 Miscellaneous Medical Supply [Glucometer Device] 1 each .ROUTE ASDIR #1 kit 02/01 [place], Safety [Needle] 1 each ASDIR #120 dis.needle 01/24/17 Nystatin Oral Suspension - [Nystatin Oral Susp 517287 Units/5 ML -] 500,000 units PO Q6HPO #100 ml 01/24/17 Syringe, Disposable, 1 ml [Carepoint Luer Slip Syringe] 1 each ASDIR #120 disp.syrin 01/24/17 Glipizide [Glucotrol -] 5 mg PO BID #60 tablet 01/27/17 Insulin NPH [Novolin N Vial -] 20 units SQ BID #1 vial 01/27/17 Insulin Regular [Novolin R Vial -] 10 unit SQ TID #1 vial 01/27/17 Nicotine Patch [Nicoderm Patch -] 1 patch TD DAILY #30 patch 01/27/17 This patient is new to me today: No Emergency Visit: Yes ED Registration Date: 01/21/17 Care time: The patient presented to the Emergency Department on the above date and was hospitalized for further evaluation of their emergent condition. Critical Care patient: No - Discharge Referral Referred to [facility] Med P.C.: Yes Physician Referral: Nigel Sanchez MD ([facility])
[2017-01-27 18:51] VITALS: BP 148/97; PULSE 70; TEMP 97.5
[2017-01-27] MEDS: INSULIN DETEMIR 100 UNITS/ML MDV SQ SCH (19:10)
== END 2017-01-27 19:13 | disposition home or self-care (01) | DRG 637 ==
LOC: JER 22:14 → JERBED 01-21 03:30 → UNDOADMIN 01-21 03:44 → JERBED 01-21 03:44 → JICU 01-21 07:07 → J5S 01-22 17:26
PROVIDERS: ADMIT Internal Medicine; ATTEND Internal Medicine
DX: E11.00 Type 2 diabetes mellitus with hyperosmolarity without nonketotic hyperglycemic-hyperosmolar coma (NKHHC) (principal); G93.41 Metabolic encephalopathy; E87.2 Acidosis; E87.0 Hyperosmolality and hypernatremia; N17.9 Acute kidney failure, unspecified; B37.0 Candidal stomatitis; N39.0 Urinary tract infection, site not specified; F17.210 Nicotine dependence, cigarettes, uncomplicated; E87.5 Hyperkalemia; I45.81 Long QT syndrome; E86.1 Hypovolemia; E86.0 Dehydration; E11.65 Type 2 diabetes mellitus with hyperglycemia; R31.9 Hematuria, unspecified
CPT/HCPCS: 36415; 36600; 70450-TC; 71010-TC; 76775-TC; 80048; 80053; 80307; 81003; 81015; 82436; 82553; 82570; 82693; 82803; 82947; 83036; 83605; 83735; 84100; 84133; 84295; 84300; 84484; 85025; 85027; 85610; 86341; 86850; 86900; 86901; 87086; 90732; 93005; 93010; 93306-TC; 99281-25; G0009; J1644; J3480

== ENCOUNTER 2024-11-26 20:16 | Inpatient (IN) | payer OTHER ==
[2024-11-26] MEDS: ALBUTEROL SO4 2.5/IPRATROPIUM 0.5 INH SOL 3 ML VIAL.NEB. NEB ONE (21:18)
[2024-11-26 21:22] LABS: ABSOLUTE IMMATURE GRANULOCYTES 0.30 x10^3/uL (0.0-0.031); BASOPHILS # 0.05 x10^3/uL (0.01-0.08); EOSINOPHIL % 0.1 % (0.8-7.0); EOSINOPHILS # 0.01 x10^3/uL (0.04-0.54); MCHC 30.0 g/dl (32.3-36.5); MEAN CELL VOLUME 91.3 fl (79.0-92.2); MEAN PLT VOLUME 10.0 fl (9.4-12.4); MONOCYTE # 1.23 x10^3/uL (0.30-0.82); MONOCYTE % 9.5 % (5.3-12.2); RDW 18.4 % (12.2-16.4)
[2024-11-26 21:37] LABS: BG HCT 42.0 % (35.4-49); INR 1.1 (0.83-1.09); PROTHROMBIN TIME (PATIENT) 12.0 SEC (9.7-13.0); VENOUS BASE EXCESS 1.9 mmol/L (-2-2); VENOUS O2 SATURATION 98.0 % (70-80); VENOUS PCO2 47.3 mmHg (38-52); VENOUS PH 7.384 (7.310-7.410)
[2024-11-26 21:39] LABS: ACTIVATED PTT 25.5 SECONDS (25.2-36.5)
[2024-11-26 21:45] LABS: CO2 27 mmol/L (21-32); GLUCOSE,RANDOM 255 mg/dL (74-106)
[2024-11-26 21:49] LABS: CREATININE 1.7 mg/dL (0.55-1.3)
[2024-11-26 21:50] LABS: ALK PHOS 89 U/L (45-117); TOT PROT 7.9 g/dl (6.4-8.2)
[2024-11-26] MEDS ORDERED: FUROSEMIDE 40 MG/4 ML INJECTABLE VIAL ONE (22:06)
[2024-11-26] MEDS: FUROSEMIDE 40 MG/4 ML INJECTABLE VIAL IVPUSH ONE (22:17)
[2024-11-26 22:58] LABS: CO2 27.0 mmol/L (21-32)
[2024-11-26 22:59] LABS: GLUCOSE,RANDOM 259.0 mg/dL (74-106)
[2024-11-26 23:01] LABS: SGOT/AST 17.0 U/L (15-37); SGPT/ALT 30.0 U/L (13-61)
[2024-11-26 23:02] LABS: CREATININE 1.7 mg/dL (0.55-1.3)
[2024-11-26 23:03] LABS: TOT PROT 6.4 g/dl (6.4-8.2)
[2024-11-26 23:04] LABS: ALK PHOS 98.0 U/L (45-117)
[2024-11-26 23:54] LABS: HIV INTERPRETATION NEGATIVE (NEGATIVE)
[2024-11-27 00:48] LABS: URINE APPEARANCE CLEAR; URINE COLOR YELLOW
[2024-11-27 00:49] LABS: URINE BILIRUBIN NEGATIVE (NEGATIVE); URINE GLUCOSE (UA) >1000 mg/dl (NEGATIVE); URINE KETONE TRACE (NEGATIVE); URINE PROTEIN 100 (NEGATIVE); URINE UROBILINOGEN 1.0 mg/dL (0.2-1.0)
[2024-11-27 00:50] LABS: URINE LEUK ESTERASE NEGATIVE (NEGATIVE); URINE NITRITE NEGATIVE (NEGATIVE)
[2024-11-27 04:58] VITALS: BMI 35.9
[2024-11-27] MEDS ORDERED: ALBUTEROL SO4 2.5/IPRATROPIUM 0.5 INH SOL 3 ML VIAL.NEB. NEB PRN (05:48)
[2024-11-27] MEDS: INSULIN ASPART SLIDING SCALE (NOVOLOG) 1 VIAL SQ SCH (06:34)
[2024-11-27] MEDS: HEPARIN NA (PORCINE) 5,000 UNITS/ML 1ML VIAL SQ SCH (06:35)
[2024-11-27] MEDS: PANTOPRAZOLE 40 MG TABLET PO SCH (06:37)
[2024-11-27] MEDS: levETIRAcetam 500 MG/5 ML INJECTION VIAL IVPB ONE (06:37)
[2024-11-27 07:05] LABS: MCHC 29.3 g/dl (32.3-36.5); MEAN CELL VOLUME 93.9 fl (79.0-92.2); MEAN PLT VOLUME 10.6 fl (9.4-12.4); RDW 16.8 % (12.2-16.4)
[2024-11-27 07:20] LABS: CO2 32.0 mmol/L (21-32)
[2024-11-27 07:21] LABS: GLUCOSE,RANDOM 324.0 mg/dL (74-106)
[2024-11-27 07:23] LABS: SGOT/AST 12.0 U/L (15-37); SGPT/ALT 25.0 U/L (13-61)
[2024-11-27 07:25] LABS: CREATININE 2.2 mg/dL (0.55-1.3); TOT PROT 5.8 g/dl (6.4-8.2)
[2024-11-27 07:26] LABS: ALK PHOS 86.0 U/L (45-117)
[2024-11-27] MEDS: DEXAMETHASONE SOD PHOSPHATE 10 MG/1 ML VIAL IVPUSH ONE (07:40)
[2024-11-27] MEDS: amLODIPine BESYLATE 10 MG TABLET (FP) PO SCH (09:03)
[2024-11-27] MEDS: ALBUTEROL SO4 2.5/IPRATROPIUM 0.5 INH SOL 3 ML VIAL.NEB. NEB PRN (11:23)
[2024-11-27] MEDS ORDERED: FUROSEMIDE 40 MG/4 ML INJECTABLE VIAL IVPUSH SCH (14:00)
[2024-11-27] MEDS: INSULIN (NOVOLOG) ASPART 100 UNITS/ML 10ML VIAL SQ ONE (21:43)
[2024-11-27] MEDS: levETIRAcetam 500 MG/5 ML INJECTION VIAL IVPB SCH (21:44)
[2024-11-27] MEDS: ATORVASTATIN CA 40 MG TABLET (FP) PO SCH (21:44)
[2024-11-28 06:45] LABS: MCHC 29.7 g/dl (32.3-36.5); MEAN CELL VOLUME 91.4 fl (79.0-92.2); MEAN PLT VOLUME 10.0 fl (9.4-12.4); RDW 16.3 % (12.2-16.4)
[2024-11-28 07:13] LABS: CO2 28.0 mmol/L (21-32); GLUCOSE,RANDOM 356.0 mg/dL (74-106)
[2024-11-28 07:15] LABS: CREATININE 1.9 mg/dL (0.55-1.3); SGPT/ALT 25.0 U/L (13-61)
[2024-11-28 07:16] LABS: SGOT/AST 13.0 U/L (15-37)
[2024-11-28 07:17] LABS: TOT PROT 5.9 g/dl (6.4-8.2)
[2024-11-28 07:18] LABS: ALK PHOS 96.0 U/L (45-117)
[2024-11-28] MEDS: FUROSEMIDE 40 MG/4 ML INJECTABLE VIAL IVPUSH SCH (09:29)
[2024-11-28] MEDS: INSULIN GLARGINE (LANTUS) 100 UNITS/ML UNITS SQ SCH ×2 (09:30→22:17)
[2024-11-28] MEDS: ACETAMINOPHEN 325 MG TABLET (FP) PO PRN (13:30)
[2024-11-28] MEDS ORDERED: DEXTROSE 50%-WATER 25 GM/50 ML DISP.SYRIN IVPUSH PRN (13:47)
[2024-11-28] MEDS: DEXAMETHASONE SOD PHOSPHATE 4 MG/1 ML VIAL IVPUSH SCH (22:17)
[2024-11-29] MEDS ORDERED: INSULIN ASPART SLIDING SCALE (NOVOLOG) 1 VIAL SQ ONE (06:40)
[2024-11-29 07:22] LABS: MCHC 30.5 g/dl (32.3-36.5); MEAN CELL VOLUME 91.4 fl (79.0-92.2); MEAN PLT VOLUME 11.1 fl (9.4-12.4); RDW 16.4 % (12.2-16.4)
[2024-11-29] MEDS: ALBUTEROL SO4 2.5/IPRATROPIUM 0.5 INH SOL 3 ML VIAL.NEB. NEB PRN (07:35)
[2024-11-29 07:47] LABS: CO2 27 mmol/L (21-32)
[2024-11-29 07:49] LABS: SGPT/ALT 22 U/L (13-61)
[2024-11-29 07:50] LABS: CREATININE 1.8 mg/dL (0.55-1.3); SGOT/AST 13 U/L (15-37)
[2024-11-29 07:52] LABS: ALK PHOS 85 U/L (45-117); TOT PROT 6.0 g/dl (6.4-8.2)
[2024-11-29 08:01] LABS: IRON SERUM 27.0 ug/dL (50-175)
[2024-11-29 08:19] LABS: GLUCOSE,RANDOM 407 mg/dL (74-106)
[2024-11-29] MEDS: ALBUTEROL SO4 2.5/IPRATROPIUM 0.5 INH SOL 3 ML VIAL.NEB. NEB SCH (11:45)
[2024-11-29] MEDS: INSULIN (NOVOLOG) ASPART 100 UNITS/ML 10ML VIAL SQ ONE (15:24)
[2024-11-29] MEDS: INSULIN GLARGINE (LANTUS) 100 UNITS/ML UNITS SQ SCH (21:33)
[2024-11-29] MEDS ORDERED: INSULIN (NOVOLOG) ASPART 100 UNITS/ML 10ML VIAL SQ ONE (23:43)
[2024-11-29] MEDS ORDERED: INSULIN GLARGINE (LANTUS) 100 UNITS/ML UNITS SQ ONE (23:45)
[2024-11-30] MEDS: INSULIN GLARGINE (LANTUS) 100 UNITS/ML UNITS SQ ONE (00:01)
[2024-11-30] MEDS: INSULIN (NOVOLOG) ASPART 100 UNITS/ML 10ML VIAL SQ ONE ×2 (00:02→19:23)
[2024-11-30 06:58] LABS: MCHC 30.4 g/dl (32.3-36.5); MEAN CELL VOLUME 91.3 fl (79.0-92.2); MEAN PLT VOLUME 10.8 fl (9.4-12.4); RDW 16.1 % (12.2-16.4)
[2024-11-30 07:29] LABS: CO2 30 mmol/L (21-32)
[2024-11-30 07:30] LABS: GLUCOSE,RANDOM 439 mg/dL (74-106)
[2024-11-30 07:32] LABS: CREATININE 1.8 mg/dL (0.55-1.3); SGOT/AST 18 U/L (15-37); SGPT/ALT 27 U/L (13-61)
[2024-11-30 07:34] LABS: TOT PROT 6.1 g/dl (6.4-8.2)
[2024-11-30 07:35] LABS: ALK PHOS 111 U/L (45-117)
[2024-11-30] MEDS: SODIUM ZIRCONIUM CYCLOSILICATE (LOKELMA) 5 GM PACKET PO SCH (09:08)
[2024-11-30] MEDS ORDERED: INSULIN GLARGINE (LANTUS) 100 UNITS/ML UNITS SQ SCH ×2 (16:04→22:00)
[2024-11-30] MEDS: INSULIN (NOVOLOG) ASPART 100 UNITS/ML 10ML VIAL SQ SCH (17:00)
[2024-11-30 18:06] LABS: CO2 29 mmol/L (21-32)
[2024-11-30 18:09] LABS: CREATININE 1.8 mg/dL (0.55-1.3)
[2024-11-30 18:10] LABS: GLUCOSE,RANDOM 462 mg/dL (74-106)
[2024-11-30] MEDS: INSULIN GLARGINE (LANTUS) 100 UNITS/ML UNITS SQ SCH (21:40)
[2024-12-01] MEDS ORDERED: DEXAMETHASONE SOD PHOSPHATE 4 MG/1 ML VIAL IVPUSH SCH (02:00)
[2024-12-01] MEDS: INSULIN (NOVOLOG) ASPART 100 UNITS/ML 10ML VIAL SQ SCH ×2 (06:08→07:10)
[2024-12-01] MEDS: INSULIN GLARGINE (LANTUS) 100 UNITS/ML UNITS SQ SCH (07:10)
[2024-12-01 08:06] LABS: MCHC 30.1 g/dl (32.3-36.5); MEAN CELL VOLUME 91.1 fl (79.0-92.2); MEAN PLT VOLUME 10.8 fl (9.4-12.4); RDW 16.0 % (12.2-16.4)
[2024-12-01 09:01] LABS: CO2 32.0 mmol/L (21-32)
[2024-12-01 09:02] LABS: GLUCOSE,RANDOM 237.0 mg/dL (74-106)
[2024-12-01 09:03] LABS: SGOT/AST 19.0 U/L (15-37); SGPT/ALT 30.0 U/L (13-61)
[2024-12-01 09:04] LABS: CREATININE 1.5 mg/dL (0.55-1.3)
[2024-12-01 09:05] LABS: TOT PROT 6.2 g/dl (6.4-8.2)
[2024-12-01 09:06] LABS: ALK PHOS 100.0 U/L (45-117)
[2024-12-01] MEDS: DEXAMETHASONE 4 MG TABLET (FP) PO SCH (09:33)
[2024-12-01 15:33] VITALS: BP 130/78; PULSE 72; RESP 20; TEMP 98.2
== END 2024-12-01 14:50 | disposition home health service (06) | DRG 54 ==
LOC: JER 20:16 → JERBED 11-27 01:33 → MERGE 11-27 01:33 → J4W 11-27 03:21
PROVIDERS: ADMIT Student in an Organized Health Care Education/Training Program; ATTEND Internal Medicine
DX: C79.31 Secondary malignant neoplasm of brain (principal); G93.6 Cerebral edema; N17.9 Acute kidney failure, unspecified; C34.90 Malignant neoplasm of unspecified part of unspecified bronchus or lung; I12.9 Hypertensive chronic kidney disease with stage 1 through stage 4 chronic kidney disease, or unspecified chronic kidney disease; E11.22 Type 2 diabetes mellitus with diabetic chronic kidney disease; N18.9 Chronic kidney disease, unspecified; J44.9 Chronic obstructive pulmonary disease, unspecified; Z99.81 Dependence on supplemental oxygen; E11.65 Type 2 diabetes mellitus with hyperglycemia; D63.8 Anemia in other chronic diseases classified elsewhere
CPT/HCPCS: 36415; 70450-TC; 70553-TC; 71045-TC-FY; 71250-TC; 76775-TC; 80048; 80053; 81003; 82550; 82607; 82728; 82746; 82803; 82962; 83036; 83540; 83550; 83735; 83880; 84100; 84484; 85025; 85027; 85610; 85730; 86803; 87086; 87389; 87522; 87637-QW; 93005; 93010; 93306-TC; 94640; 94660; 97116-GP; 97163-GP; 99285-25; A9576; J1100